=== PATIENT | female | born 1975 | race Caucasian/White ===

== ENCOUNTER 2017-04-25 15:50 | Emergency (ER) | payer MEDICAID ==
[~2017-04-25] VITALS: Ht 154.9 cm; Wt 90.7 kg
[~2017-04-25 15:50] MED LIST: PEPCID40 MG PO; SYNTHROID0.15 M1 NG
--- OUTSIDE RECORDS SUMMARY | 2017-04-25 16:16 | External Medical Summary Rpt ---
Author Author , LORENZO VENTURA Address Unknown Phone [email or web address] Care Team Providers Care Property Management Specialist Name Role Phone [facility], Unavailable Unavailable [facility] NOE, NOE Unavailable Unavailable VIVAS, VIVAS Unavailable Unavailable DANDRE BEDOYA MD, Unavailable Unavailable SINDY HENDRIX MD Unavailable Unavailable GORE, GORE Unavailable Unavailable [facility] Un[facility] Unavailable INC, [facility] KANU BORIS, KANU BORIS Unavailable Unavailable CARMELLA, CARMELLA Unavailable Unavailable [facility] Unavailable Unavailable [facility], [facility] Unavailable Unavailable [facility], [facility] Unavailable Unavailable HEALTH CTR, [facility] Unavailable Unavailable DEPARTMENT, [facility] Unavailable Unavailable [facility], [facility] Un[facility] Unavailable [facility], [facility] OLIVAREZ JR, JR Unavailable Unavailable [facility] Unavailable Unavailable [facility]OC[facility], [facility] Unavailable Unavailable SURGERY, [facility] Unavailable Unavailable MEDICAL, [facility] Unavailable Unavailable [facility] CENTER, [facility] Unavailable Unavailable [facility], [facility], Un[facility] Unavailable [facility], [facility] ELKE SAE ELKE Unavailable Unavailable SAE TOLBERT, SRIDHAR, Unavailable Unavailable TOLBERT, SRIDHAR [facility], Unavailable Unavailable [facility] RENUSCH, RENUSCH Unavailable Unavailable SPADY, SPADY Unavailable Unavailable VARGAS KER, VARGAS KER Unavailable Unavailable [facility] Unavailable Unavailable PHARMACY, [facility] # Unavailable Unavailable [id number], [facility] # [id number] DUNN GWE, DUNN GWE Unavailable Unavailable DUNN, JAEL, DUNN, Unavailable Unavailable JAEL Purpose Continuity of Care Document - 11-16-2008 through 2016 Problems Code Diagnosis DOS Provider Status [id number] OTHER 02-11-2017 [facility] R319 HEMATURIA 02-11-2017 [facility] E039 HYPOTHYROID 12-02-2016 [facility] ISM [facility] E890 POSTPROCEDU 12-02-[address] [facility] HYPOTHYROID HOLDINGS ISM J069 ACUTE UPPER 12-02-2016 [facility] INFECTION UNSPECIFIED K8010 CALCULUS GB 11-04-2016 [facility] W/CHRONIC [place] [facility] CHOLECYST W/O OBSTRUCTION K8020 CALCULUS GB 11-04-2016 [facility] W/O GENERAL CHOLECYSTIT SURGERY IS W/O OBSTRUCTION K811 CHRONIC 11-04-2016 [facility] CHOLECYSTIT GENERAL IS SURGERY K828 OTHER 11-04-2016 [facility] DISEASES OF ASSOCIAT GALLBLADDER E6601 MORBID 10-29-2016 [facility] SEVERE GENERAL OBESITY DUE SURGERY TO EXCESS CALORIES Z6841 BODY MASS 10-29-2016 [facility] BMI GENERAL 40.0-44.9 SURGERY ADULT J0190 ACUTE 10-15-2016 [facility] SINUSITIS [facility]PEC[facility] CTR R1011 RIGHT UPPER 10-03-2016 [facility] R110 NAUSEA 10-03-2016 [facility] R140 ABDOMINAL 10-03-2016 [facility] GASEOUS ASSOCIAT N63 UNSPECIFIED 09-17-[address] [facility] [address] [facility] BREAST MEDICAL Z1231 ENCOUNTER 09-05-2016 [facility] SCREENING [facility] NEOPLASM BREAST K30 FUNCTIONAL 08-24-2016 [facility] R1013 EPIGASTRIC 08-24-2016 [facility] PAIN [facility], [facility] 5990 URINARY 03-23-2011 [facility] SITE NOT SPECIFIED 25772 UNSPEC 03-08-2011 DANDRE BEDOYA MD AB WITHOUT MENTION COMP 22426 THREATENED 03-06-2011 [facility] , [facility]IMARY ANTEPARTUM CARE CENTER V221 SUPERVISION 03-06-2011 [facility] OF OTHER PRIMARY NORMAL CARE CENTER 7881 DYSURIA 03-05-2011 [facility] 460 ACUTE 03-04-2011 [facility] NASOPHARYNG PRIMARY ITIS CARE CENTER 2449 UNSPECIFIED 02-19-2011 [facility] HYPOTHYROID [facility]ARE C[facility] ISM 99248 OBES COMP 02-19-2011 [facility] PG PRIMARY /THE CARE CENTER PP ANTEPARTUM COND/COMP 79065 PREVIOUS 02-19-2011 [facility] C-SECT PRIMARY DELIVERY CARE CENTER ANTPRTM COND/COMP V232 02-13-2011 [facility] WITH PRIMARY HISTORY OF CARE CENTER V776 SCREENING 02-13-2011 [facility] FOR CYSTIC PRIMARY FIBROSIS CARE CENTER V825 SCREENING 02-06-2011 [facility] CHEMICAL HEALTH POISONING&O DEPARTMENT THER CONTAMINATI ON V7242 02-05-2011 [facility] EXAMINATION PRIMARY OR TEST CARE CENTER POSITIVE RESULT 6260 ABSENCE OF 01-26-2009 [facility] MENSTRUATIO PRIMARY N CARE CENTERINC 23831 ESOPHAGEAL 11-28-2008 [place] 632 MISSED 11-28-2008 [place] [facility] 12603 UNSPECIFIED 11-16-2008 [facility] ABNORMALITY MEDICAL OF LABOR CENTER ANTEPARTUM 7245 UNSPECIFIED 11-16-2008 [place] BACKACHE [facility] Medications Na ND Rx Da Fi Fi Am Da Di Ph RX Ph St me C No te ll ll ou ys ag ar # ys at rm s nt no ma ic us Or Da si cy ia de te s n re d LE 00 06 04 13 30 00 WA Ac VO 78 -2 -2 .0 00 L- ti TH 15 0- 1- 00 07 MA ve YR 18 20 20 89 RT OX 79 17 17 04 IN 2 98 PH E AR 15 MA 0 CY MC G #1 TA 56 BL 9 ET ES 54 06 04 13 30 00 VA Ac CI 45 -2 -2 .0 00 L- ti TA 80 0- 1- 00 07 MA ve LO 89 20 20 89 RT OK 21 17 17 04 AM 0 99 PH AR 10 MA CY MG #1 TA 56 BL 9 ET LI 00 02 19 30 30 00 WA Ac OT 57 -2 -2 .0 00 L- ti HY 40 0- 1- 00 07 MA ve RO 22 20 20 89 RT NI 00 17 17 05 NE 1 11 PH AR SO MA D CY 5 MC #1 G 56 TA 9 B PA 68 06 04 13 30 00 WA Ac NT 64 -2 -2 .0 00 L- ti OP 50 0- 1- 00 07 MA ve RA 49 20 20 89 RT ZO 25 17 17 05 LE 4 12 PH AR SO MA D CY DR #1 40 56 9 MG TA B FA 68 05 06 30 00 WA Ac MO 64 -3 -3 .0 00 L- ti TI 50 0- 0- 00 07 MA ve DI 14 20 20 86 RT NE 15 17 17 13 4 89 PH 40 AR MA MG CY TA #1 BL 56 ET 9 NA 68 05 06 60 30 00 DE Ac OK 46 -3 -3 .0 00 AN ti OX 20 0- 0- 00 06 S ve EN 19 20 20 51 PH 00 17 17 54 AR 50 1 79 MA 0 CY MG TA BL ET NI 47 05 06 14 7 00 DE Ac TR 78 -3 -3 .0 00 AN ti OF 10 0- 0- 00 06 S ve UR 30 20 20 51 PH AN 30 17 17 54 AR TO 1 80 MA IN CY MO NO -M CR 10 0 MG AZ 59 03 04 6. 5 00 WA Ac IT 76 -2 -2 00 00 L- ti HR 23 0- 1- 0 07 MA ve OM 06 20 20 87 RT YC 00 17 17 43 IN 1 79 PH AR 25 MA 0 CY MG #1 TA 56 BL 9 ET LE 00 03 04 30 30 00 WA Ac VO 78 -2 -2 .0 00 L- ti TH 15 1- 1- 00 07 MA ve YR 18 20 20 87 RT OX 79 17 17 46 IN 2 67 PH E AR 15 MA 0 CY MC G #1 TA 56 BL 9 ET FL 55 03 04 5. 5 00 WA Ac UC 11 -1 -2 00 00 L- ti ON 10 7- 1- 0 07 MA ve AZ 14 20 20 87 RT OL 51 17 17 38 E 2 47 PH 15 AR 0 MA MG CY TA #1 BL 56 ET 9 LE 00 03 04 30 30 00 WA Ac VO 78 -1 -1 .0 00 L- ti TH 15 4- 4- 00 07 MA ve YR 19 20 20 84 RT OX 19 17 17 85 IN 2 55 PH E AR 13 MA 7 CY MC G #1 TA 56 BL 9 ET FA 68 02 03 30 30 00 WA Ac MO 64 -1 -2 .0 00 L- ti TI 50 7- 4- 00 07 MA ve DI 14 20 20 86 RT NE 15 17 17 13 4 89 PH 40 AR MA MG CY TA #1 BL 56 ET 9 HY 00 02 03 [address] 40 -2 -2 .0 00 L- ti OC 60 0- 4- 00 02 MA ve OD 12 20 20 25 RT ON 30 17 17 32 -A 1 42 PH CE AR TA MA HI CY NO PH #1 EN 56 9 5- 32 5 AM 00 01 03 20 10 00 WA Ac OX 78 -3 -0 .0 00 L- ti -C 11 1- 3- 00 07 MA ve LA 85 20 20 86 RT V 22 17 17 52 87 0 78 PH 5- AR 12 MA 5 CY MG #1 TA 56 BL 9 ET ME 59 01 03 21 6 00 WA Ac TH 74 -3 -0 .0 00 L- ti YL 60 1- 3- 00 07 MA ve OK 00 20 20 86 RT ED 10 17 17 52 NI 3 77 PH SO AR LO MA NE CY 4 #1 MG 56 9 DO SE PK FA 68 01 02 30 30 00 WA Ac MO 64 -0 -1 .0 00 L- ti TI 50 9- 7- 00 07 MA ve DI 14 20 20 86 RT NE 15 17 17 13 4 89 PH 40 AR MA MG CY TA #1 BL 56 ET 9 LE 00 06 09 2 30 30 TO 61 WE Ac VO 52 -2 -3 .0 LL 14 BB ti TH 71 7- 0- 00 ES 93 ve YR 63 20 20 SELENE 0 GW OX 80 11 11 RO EN IN 1 E CL 13 IN 7 IC MC G PH TA AR BL MA ET CY BU 00 08 08 0 30 30 TO 61 HI Ac OK 59 -2 -2 .0 LL 17 ME ti OP 13 4- 4- 00 ES 19 S ve IO 54 20 20 SELENE 0 ER N 16 11 11 RO IN HC 0 L CL SR IN IC 15 0 PH MG AR MA TA CY BL ET LE 00 06 08 2 30 30 TO 61 WE Ac VO 52 -2 -2 .0 LL 14 BB ti TH 71 7- 2- 00 ES 93 ve YR 63 20 20 SELENE 0 GW OX 80 11 11 RO EN IN 1 E CL 13 IN 7 IC MC G PH TA AR BL MA ET CY 65 07 07 0 10 3 WA 75 PO Ac 16 -0 -1 .0 L- 38 CZ ti 20 9- 1- 00 MA 77 AT ve 52 20 20 RT 3 EK 01 11 11 0 PH PA AR TT MA I CY S # 10 15 69 GAUTHIER 53 07 07 0 20 10 WA 75 PO Ac LF 74 -0 -1 .0 L- 38 CZ ti AM 60 9- 1- 00 MA 77 AT ve ET 27 20 20 RT 4 EK HO 20 11 11 XA 5 PH PA ZO AR TT LE MA I -T CY S MP # DS 10 15 TA 69 BL ET IB 55 06 06 1 60 20 TO 61 PE Ac UP 11 -2 -2 .0 LL 14 TT ti RO 10 7- 7- 00 ES 96 IT ve FE 68 20 20 SELENE 2 N 40 11 11 RO GE 80 5 OR 0 CL GE MG IN P IC TA BL PH ET AR MA CY DO 57 06 06 0 30 15 TO 61 PE Ac CU 89 -2 -2 .0 LL 14 TT ti SA 60 4- 7- 00 ES 96 IT ve TE 40 20 20 SELENE 3 11 11 11 RO GE SO 0 OR DI CL GE UM IN P IC 10 0 PH MG AR MA CA CY PS UL E LE 00 06 06 2 30 30 TO 61 WE Ac VO 52 -2 -2 .0 LL 14 BB ti TH 71 7- 7- 00 ES 93 ve YR 63 20 20 SELENE 0 GW OX 80 11 11 RO EN IN 1 E CL 13 IN 7 IC MC G PH TA AR BL MA ET CY OK 65 05 06 3 30 30 TO 61 WE Ac EN 16 -2 -2 .0 LL 13 BB ti AT 20 4- 4- 00 ES 72 ve AL 66 20 20 SELENE 3 GW [address] 0 US CL IN TA IC BL ET PH AR MA CY PA 24 06 06 2 10 13 TO 61 HI Ac IN 38 -2 -2 0. LL 14 ME ti 50 0- 0- 00 ES 69 S ve RE 48 20 20 0 SELENE 6 ER LI 44 11 11 RO IN EF 7 CL 50 IN 0 IC MG PH CA AR PL MA ET CY FE 00 06 06 4 90 30 TO 61 WE Ac RR 67 -0 -0 .0 LL 14 BB ti OU 70 7- 7- 00 ES 22 ve S 07 20 20 SELENE 6 GW GAUTHIER 00 11 11 RO EN LF 1 AT CL E IN 32 IC 5 MG PH AR TA MA BL CY ET 00 06 06 2 30 30 TO 61 WE Ac 78 -0 -0 .0 LL 14 BB ti 15 7- 7- 00 ES 22 ve 18 20 20 SELENE 7 GW 80 11 11 RO EN 1 CL IN IC PH AR MA CY OK 65 05 05 3 30 30 TO 61 WE Ac EN 16 -2 -2 .0 LL 13 BB ti AT 20 4- 4- 00 ES 72 ve AL 66 20 20 SELENE 3 GW [address] 0 US CL IN TA IC BL ET PH AR MA CY 63 05 05 00 20 10 TO 60 PO Ac 82 -0 -2 .0 LL 83 CZ ti 40 7- 1- 00 ES 23 AT ve 00 20 20 SELENE 1 EK 81 09 09 RO 0 PA CL TT IN I IC S PH AR MA CY AM 00 05 05 00 30 10 TO 60 PO Ac OX 78 -0 -2 .0 LL 83 CZ ti IC 12 7- 1- 00 ES 23 AT ve IL 61 20 20 SELENE 0 EK LI 30 09 09 RO N 5 PA 50 CL TT 0 IN I MG IC S CA PH PS AR UL MA E CY LE 00 05 05 00 30 30 TO 60 PO Ac VO 37 -0 -2 .0 LL 83 RT ti TH 81 7- 1- 00 ES 23 ER ve YR 81 20 20 SELENE 2 OX 90 09 09 RO SA IN 1 RA E CL H 20 IN G 0 IC MC G PH TA AR BL MA ET CY 00 04 04 00 14 30 TO 60 PO Ac 59 -1 -2 .6 LL 82 RT ti 70 4- 3- 99 ES 32 ER ve 01 20 20 SELENE 8 31 09 09 RO SA 4 RA CL H IN G IC PH AR MA CY SE 59 04 04 00 15 30 TO 60 PO Ac RT 76 -0 -2 .0 LL 82 RT ti RA 24 9- 3- 00 ES 12 ER ve LI 91 20 20 SELENE 8 NE 00 09 09 RO SA 4 RA HC CL H L IN G 10 IC 0 MG PH AR TA MA BL CY ET Procedures Procedure DOS Code Location Performer Comment CULTURE 24997 LAB MAR LAB [facility] BACTERIAL 7 [facility] [place] [address] LAB MAR LAB MAR TRIIODOTH 7 [facility] YRONINE [place] [address] LAB MAR LAB MAR FREE 7 [facility] [place] [address] LAB MAR LAB MAR THYROID 7 [facility] STIMULATI HOLDINGS HOLDINGS [place] III [address] [facility] NOE SURG 7 [place] INC PATHOLOGY GROSS&TIN ROSCOPIC EXAM RAD EXP G9500 KATINA VIVAS INDICES/E 7 XP TM & RADIOLOGY NUMB ASSOCIAT FLUORO IMAGES DOC CHOLANGIO 25458 KATINA VIVAS GRAPHY&/P 7 ANCREATOG RADIOLOGY GRADY ASSOCIAT NTRAOP RS&I LAPS SURG 06107 [facility] 7 W GENERAL W GENERAL CHOLECYST SURGERY SURGERY ECTOMY W/CHOLANG IOGRAPHY ANES 36926 [facility] INTRAPERI 7 LTH TONEAL ANESTHESI UPPER A PSC ABDOMEN W/LAPS NOS HEPATOBIL 01881 [facility] SYST 7 W W IMAG INC REGIONAL REGIONAL GB MEDICAL MEDICAL W/PHARMA INTERVENJ TECHNETIU A9537 INNA KEITH M TC-99M 7 W W MEBROFENI REGIONAL REGIONAL N DX UP MEDICAL MEDICAL TO 15 MCI INJECTION J2805 RAPHAELWOMI [facility] 7 W W SINCALIDE REGIONAL REGIONAL 5 MEDICAL MEDICAL MICROGRAM S US BREAST 68490 [facility]WOMI LIMWOMI UNI REAL 7 W W TIME REGIONAL REGIONAL WITH MEDICAL MEDICAL IMAGE LIMITED COMPUTER- 04533 [facility] AIDED 6 DETECTION RADIOLOGY RADIOLOGY ASSOCIAT ASSOCIAT SCREENING MAMMOGRAP HY SCREENING G0202 [facility] 6 MAMMOGRAP RADIOLOGY HY BRAY[place] [address] [facility] ABDOMINAL 6 FAMILY REAL HEALTH TIME CTR W/[place] [address] LAB MAR LAB MAR TRIIODOTH 6 LAURA LAURA YRONINE HOLDINGS HOLDINGS T3 FREE GENERAL 05570 LAB MAR LAB MAR HEALTH 6 [facility] [place] [address] LAB MAR LAB MAR FREE 6 [facility]UR[facility] THYROXINE HOLDINGS HOLDINGS ECG 04528 [facility] OLGUIN ROUTINE 6 [facility] ECG INC INC W/LEAST 12 LDS TRCG ONLY W/O I&[place] [address] [facility] OLGUIN LIPASE 6 [place] [address] [facility] OLGUIN TROPONIN 6 [facility] QUANTITAT INC INC SAMIR URNLS DIP 09784 [facility] LOGUIN 6 [facility] STICK/TAB INC INC LET REAGENT AUTO MICROSCOP Y ECG 34160 SHARIF OLIVAREZ JR ROUTINE 6 [facility] W/LEAST P 12 LDS I&R ONLY BLOOD 53575 [facility] OLGUIN COUNT 6 [facility] COMPLETE INC INC AUTO&AUTO DIFRNTL WBC COMPREHEN 13513 [facility] OLGUIN SIVE 6 [facility] METABOLIC INC INC PANEL URNLS DIP 60978 [facility] 1 PRIMARY PAT STICK/TAB CARE LET RGNT CENTER AUTO W/O MICROSCOP Y [place] MISSED 34533 DANDRE BEDOYA 1 ELKE NUGENT SAE FIRST TRIMESTER SURGICAL URNLS DIP 63027 [facility] DUNN GWE 1 PRIMARY STICK/TAB CARE LET RGNT CENTER AUTO W/O MICROSCOP Y COLLECTIO 04467 [facility] DUNN GWE N VENOUS 1 PRIMARY BLOOD CARE VENIPUNCT CENTER URE BLOOD 64689 [facility] TYPING 1 W W SEROLOGIC REGIONAL REGIONAL ABO MEDICAL MEDICAL COLLECTIO 18087 [facility] N VENOUS 1 W W BLOOD REGIONAL REGIONAL VENIPUNCT MEDICAL MEDICAL URE GONADOTRO 37900 [facility] PIN 1 W W CHORIONIC REGIONAL REGIONAL MEDICAL MEDICAL QUANTITAT SAMIR URNLS DIP 05506 [facility] 1 W W STICK/TAB REGIONAL REGIONAL LET MEDICAL MEDICAL REAGENT AUTO MICROSCOP Y BLOOD 21078 [facility] TYPING 1 W W SEROLOGIC REGIONAL REGIONAL RH (D) MEDICAL MEDICAL COLLECTIO 78798 [facility] DUNN GWE N VENOUS 1 PRIMARY BLOOD CARE VENIPUNCT CENTER URE URNLS DIP 81914 [facility] DUNN GWE 1 PRIMARY STICK/TAB CARE LET RGNT CENTER AUTO W/O MICROSCOP Y COLLECTIO 13803 [facility] DUNN GWE N VENOUS 1 PRIMARY BLOOD CARE VENIPUNCT CENTER URE URNLS DIP 30539 [facility] DUNN GWE 1 PRIMARY STICK/TAB CARE LET RGNT CENTER AUTO W/[place] [address] [facility] LEAD 1 [facility] T T URINE 52875 [facility] DUNN GWE 1 PRIMARY TEST CARE VISUAL CENTER COLOR CMPRSN METHS URNLS DIP 79191 [facility] DUNN GWE 1 PRIMARY STICK/TAB CARE LET RGNT CENTER AUTO W/O MICROSCOP Y COLLECTIO 29132 [facility] DNUN GWE N VENOUS 1 PRIMARY BLOOD CARE VENIPUNCT CENTER URE COLLECTIO 59873 [facility], N VENOUS 9 PRIMARY SRIDHAR BLOOD CARE VENIPUNCT CENTERINC URE URINE 20559 [facility], 9 PRIMARY SRIDHAR TEST CARE VISUAL CENTERINC COLOR CMPRSN METHS URINE 68578 [facility] [address] W W TEST [facility] [facility] VISUAL MEDICAL MEDICAL COLOR CENTER CENTER CMPRSN METHS BLOOD 01480 [facility] TYPING 9 W W SEROLOGIC [facility] RH (D) MEDICAL MEDICAL CENTER CENTER URNLS DIP 36750 [facility] 9 W W STICK/TAB [facility] LET MEDICAL MEDICAL REAGENT CENTER CENTER AUTO MICROSCOP Y BLOOD 32285 [facility] COUNT 9 W W COMPLETE [facility] AUTO&AUTO MEDICAL MEDICAL DIFRNTL CENTER CENTER WBC COLLECTIO 35552 [facility] N VENOUS 9 W W BLOOD [facility] VENIPUNCT [facility] MEDICAL URE CENTER CENTER THERAPEUT 94902 [facility] IC 9 W W PROPHYLAC [facility] TIC/DX MEDICAL MEDICAL INJECTION CENTER CENTER SUBQ/IM BLOOD 37956 [facility] TYPING 9 W W SEROLOGIC [facility] ABO [facility] [place] [address] [facility] D[facility], THYROID 9 PRIMARY JAEL STIMULATI CARE NG CENTERINC HORMONE TSH URNLS DIP 41007 [facility] DUNN, 9 PRIMARY JAEL STICK/TAB CARE LET RGNT CENTERINC AUTO W/O MICROSCOP Y URINE 83878 [facility] DUNN, 9 PRIMARY JAEL TEST CARE VISUAL CENTERINC COLOR CMPRSN METHS URINE 78090 [facility] 9 W W TEST [facility] VISUAL MEDICAL MEDICAL COLOR CENTER CENTER CMPRSN METHS CUL BACT 73608 [facility] XCPT 9 W W URINE [facility] BLOOD/STO MEDICAL MEDICAL OL CENTER CENTER AEROBIC ISOL SMR PRIM 94540 [facility] SRC WET 9 W W [facility] NF[facility] MEDICAL MEDICAL CENTER CENTER CHLAMYDIA 16940 [facility]OW[facility] 9 W W TRACHOMAT [facility] IS MEDICAL MEDICAL CENTER CENTER SMR PRIM 30044 [facility] SRC 9 W W GRAM/GIEM [facility] SA STAIN MEDICAL MEDICAL BCT CENTER CENTER FUNGI/WALTER L BLOOD 29149 [facility] COUNT 9 W W COMPLETE [facility] AUTO&AUTO MEDICAL MEDICAL DIFRNTL CENTER CENTER WBC URNLS DIP 82083 [facility] 9 W W STICK/TAB [facility] LET MEDICAL MEDICAL REAGENT CENTER CENTER AUTO MICROSCOP Y COLLECTIO 43521 ANNDOWOMI MEAW[facility] N VENOUS 9 W W BLOOD [facility] VENIPUNCT MEDICAL MEDICAL URE CENTER CENTER GONADOTRO 78395 RAPHAELWOMI MEAW[facility] PIN 9 W W [facility]IC [facility] MEDICAL QUANTITAT CENTER CENTER SAMIR Encounters Encounter Start End Date Code Location Performer Type Date OFFICE 01858 [facility] OUTPATIEN 7 7 FAMILY T VISIT HEALTH 25 CTR MINUTES OFFICE 27901 [facility] CARMELLA OUTPATIEN 7 7 FAMILY T VISIT HEALTH 15 CTR MINUTES OFFICE 88032 INNA BRADYFRANCK OUTPATIEN 7 7 W GENERAL T NEW 45 SURGERY MINUTES OFFICE 79767 [facility] OUTPATIEN 7 7 FAMILY T VISIT HEALTH 15 CTR MINUTES HOSPITAL [facility] - 7 [facility] 6 [facility] 57975 [facility] CARMELLA OUTPATIEN 6 6 FAMILY T VISIT HEALTH 15 CTR MINUTES EMERGENCY 15947 [facility] DEPT 6 6 PHYSICIAN VISIT S, PLLC HIGH SEVERITY& THREAT [facility] SHARIF - 6 6 [facility] OUTPATIEN INC T OFFICE 69350 [facility] OUTPATIEN 1 1 PRIMARY PAT T VISIT CARE 15 CENTER MINUTES OFFICE 85658 [facility] DUNN GWE OUTPATIEN 1 1 PRIMARY T VISIT CARE 15 CENTER MINUTES HOSPITAL RAPHAELWVIE - 1 1 W OUTPATIEN REGIONAL T MEDICAL EMERGENCY 10991 DAWSON VARGAS KER 1 1 EMERGENCY DEPARTMEN SERVICES T VISIT HIGH/URGE NT SEVERITY OFFICE 67220 [facility] KANU BORIS OUTPATIEN 1 1 PRIMARY T VISIT CARE 15 CENTER MINUTES OFFICE 44513 [facility] DUNN GWE OUTPATIEN 1 1 PRIMARY T VISIT CARE 15 CENTER MINUTES OFFICE 30536 [facility] DUNN GWE OUTPATIEN 1 1 PRIMARY T VISIT CARE 25 CENTER MINUTES OFFICE 54857 [facility] OUTPATIEN 1 1 [facility] 20 [facility] DEPARTMEN MINUTES T T OFFICE 65639 [facility] DUNN GWE OUTPATIEN 1 1 PRIMARY T VISIT CARE 15 CENTER MINUTES OFFICE 65904 [facility], OUTPATIEN 9 9 PRIMARY SRIDHAR T VISIT CARE 25 CENTERINC MINUTES EMERGENCY 37809 RAPHAELWVIE 9 9 W DEPARTMEN REGIONAL T VISIT MEDICAL HIGH/URGE CENTER NT [facility] HOSPITAL ME[facility] - 9 9 W OUTPATIEN REGIONAL T MEDICAL CENTER OFFICE 27534 [facility] DUNN, OUTPATIEN 9 9 PRIMARY JAEL T VISIT CARE 15 CENTERINC MINUTES EMERGENCY 99815 [facility] 9 9 W DEPARTMEN REGIONAL T VISIT MEDICAL MODERATE CENTER [facility] H[facility] MEAWVIE - 9 9 W OUTPATIEN REGIONAL T MEDICAL CENTER
--- OUTSIDE RECORDS SUMMARY | 2017-04-25 16:16 | External Medical Summary Rpt ---
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 Name Role Phone [facility] [place] [facility], Unavailable [...] HOLDINGS, [facility] Unavailable Unavailable HEALTH CTR, [facility] Unavailable Unavailable DEPARTMENT, [facility] Unavailable Unavailable [facility]MENT, [facility] Un[facility] Unavailable C[facility], [facility] OLIVAREZ JR, JR [facility]available Unavailable [facility] Unavailable Unavailable ASSOCI, [facility] Unavailable Unavailable SURGERY, [facility] Unavailable [facility]available MEDICAL, [facility] Unavailable [facility]available MEDICAL CENTER, [facility] Unavailable Unavailable [facility], [facility], Un[facility] Unavailable [facility], [facility] ELKE SAE ELKE Unavailable Unavailable SAE TOLBERT, SRIDHAR, Unavailable Unavailable TOLBERT, SRIDHAR [facility], Unavailable Unavailable [facility] RENUSCH, RENUSCH Unavailable Unavailable SPADY, SPADY Unavailable Unavailable VARGAS KER, VARGAS KER Unavailable Unavailable [facility] Unavailable Unavailable PHARMACY, [facility] # Unavailable Unavailable [id number], [facility] # [id number] DUNN GWE, DUNN GWE Unavailable Unavailable DUNN, JAEL, DUNN, Unavailable Unavailable JAEL Purpose Continuity of Care Document - 11-16-2008 through 2016 Problems Code Diagnosis DOS Provider Status [id number] OTHER 02-11-2017 [facility] R319 HEMATURIA 02-11-2017 [facility] E039 HYPOTHYROID 12-02-2016 [facility] ISM [facility] E890 POSTPROCEDU 12-02-2016 [facility] LAURA HYPOTHYROID HOLDINGS ISM J069 ACUTE UPPER 12-02-2016 [facility] INFECTION UNSPECIFIED K8010 CALCULUS GB 11-04-2016 [facility] W/CHRONIC [place] [facility] CHOLECYST W/O OBSTRUCTION K8020 CALCULUS GB 11-04-2016 [facility] W/O GENERAL CHOLECYSTIT SURGERY IS W/O OBSTRUCTION K811 CHRONIC 11-04-2016 [facility] CHOLECYSTIT GENERAL IS SURGERY K828 OTHER 11-04-2016 [facility] DISEASES OF ASSOCIAT GALLBLADDER E6601 MORBID 10-29-2016 [facility] SEVERE GENERAL OBESITY DUE SURGERY TO EXCESS CALORIES Z6841 BODY MASS 10-29-2016 [facility] INDEX BMI GENERAL 40.0-44.9 SURGERY ADULT J0190 ACUTE 10-15-2016 [facility] SINUSITIS [facility] UNSPECIFIED [facility] CTR R1011 RIGHT UPPER 10-03-2016 [facility] R110 NAUSEA 10-03-2016 [facility] R140 ABDOMINAL 10-03-2016 [facility] GASEOUS ASSOCIAT N63 UNSPECIFIED 09-17-[address] [facility] [address] [facility] MEDICAL Z1231 ENCOUNTER 09-05-2016 [facility] NEOPLASM BREAST K30 FUNCTIONAL 08-24-2016 [facility]PSIA [facility], [facility] R1013 EPIGASTRIC 08-24-2016 [facility] PAIN [facility]YS[facility], [facility] 5990 URINARY 03-23-2011 [facility]CT [facility] SITE NOT SPECIFIED 38407 UNSPEC 03-08-2011 DANDRE BEDOYA MD AB WITHOUT MENTION COMP 35627 THREATENED 03-06-2011 [facility] , [facility]IMARY ANTEPARTUM CARE CENTER V221 SUPERVISION 03-06-2011 [facility] OF OTHER PRIMARY NORMAL CARE CENTER 7881 DYSURIA 03-05-2011 [facility] 460 ACUTE 03-04-2011 [facility] NASOPHARYNG PRIMARY ITIS CARE CENTER 2449 UNSPECIFIED 02-19-2011 [facility] HYPOTHYROID CARE CENTER ISM 65337 OBES COMP 02-19-2011 [facility] PG PRIMARY /THE CARE CENTER PP ANTEPARTUM COND/COMP 34144 PREVIOUS 02-19-2011 [facility] TIRADO C-SECT PRIMARY DELIVERY [...] [facility] MENSTRUATIO PRIMARY N CARE CENTERINC 57372 ESOPHAGEAL 11-28-2008 [facility] REFLUX [facility] 632 MISSED 11-28-2008 [facility] 16605 UNSPECIFIED 11-16-2008 [facility] ABNORMALITY MEDICAL OF LABOR CENTER ANTEPARTUM 7245 UNSPECIFIED 11-16-2008 [facility] BACKACHE [facility] Medications Na ND Rx Da Fi Fi [...] ES 54 06 04 13 30 00 TN Ac CI 45 -2 -2 .0 00 L- ti TA 80 0- 1- 00 07 MA ve LO 89 20 20 89 RT ND 21 17 17 04 AM 0 99 [...] 05 06 60 30 00 DE Ac ND 46 -3 -3 .0 00 AN ti [...] 1 42 PH CE AR TA MA MA CY NO PH #1 EN 56 9 [...] 60 1- 3- 00 07 MA ve ND 00 20 20 86 RT ED 10 [...] 0 30 30 TO 61 HI Ac ND 59 -2 -2 .0 LL 17 ME [...] PH TA AR BL MA ET CY ND 65 05 06 3 30 30 TO [...] CL IN IC PH AR MA CY ND 65 05 05 3 30 30 TO [...] Procedure DOS Code Location Performer Comment CULTURE 04647 LAB MAR LAB MAR BACTERIAL 7 LAURA LAURA [facility]INGS [facility]INGS [place] [address] LAB MAR LAB MAR TRIIODOTH 7 LAURA LAURA YRONINE [place] [place] [address] LAB MAR LAB MAR FREE 7 LAUR[facility] [place] [address] LAB MAR LAB MAR THYROID 7 LAURA LAURA STIMULATI HOLDINGS [place] [address] [facility] NOE SURG 7 [place] PATHOLOGY GROSS&TIN ROSCOPIC EXAM RAD EXP G9500 KATINA VIVAS INDICES/E 7 XP TM & RADIOLOGY NUMB ASSOCIAT FLUORO IMAGES DOC CHOLANGIO 82810 KATINA VIVAS GRAPHY&/P 7 ANCREATOG RADIOLOGY GRADY ASSOCIAT NTRAOP RS&I LAPS SURG 89155 [facility] 7 W GENERAL W GENERAL CHOLECYST SURGERY SURGERY ECTOMY W/CHOLANG IOGRAPHY ANES 33460 [facility] INTRAPERI 7 LTH TONEAL ANESTHESI UPPER A PSC ABDOMEN W/LAPS NOS HEPATOBIL 15554 [facility] SYST 7 W W IMAG INC REGIONAL REGIONAL GB MEDICAL MEDICAL W/PHARMA INTERVENJ TECHNETIU A9537 INNA KEITH M TC-99M 7 W W MEBROFENI REGIONAL REGIONAL N DX UP MEDICAL MEDICAL TO 15 MCI INJECTION J2805 RAPHAELWOMI [facility] 7 W W SINCALIDE REGIONAL REGIONAL 5 MEDICAL MEDICAL MICROGRAM S US BREAST 81253 RAPHAELWOMI LIMWOMI UNI REAL 7 W W TIME REGIONAL REGIONAL WITH MEDICAL MEDICAL IMAGE LIMITED COMPUTER- [address] [facility] AIDED 6 DETECTION RADIOLOGY RADIOLOGY ASSOCIAT ASSOCIAT SCREENING MAMMOGRAP HY SCREENING G0202 [facility] 6 MAMMOGRAP RADIOLOGY HY BRAYDON [place] [address] [facility] CARMELLA ABDOMINAL 6 FAMILY REAL HEALTH TIME CTR W/[place] [address] LAB MAR LAB MAR TRIIODOTH 6 LAURA LAURA YRONINE HOLDINGS HOLDINGS T3 FREE GENERAL 38150 LAB MAR LAB MAR HEALTH 6 LAURA [place] [address] LAB MAR LAB MAR FREE 6 LAURA LAURA THYROXINE HOLDINGS HOLDINGS ECG 34352 SHARIF OLGUIN ROUTINE 6 [facility] ECG INC INC W/LEAST 12 LDS TRCG ONLY W/O I&[place] [address] SHARIF OLGUIN LIPASE 6 [place] [address] SHARIF OLGUIN TROPONIN 6 [facility] QUANTITAT INC INC SAMIR URNLS DIP 68294 SHARIF OLGUIN 6 [facility] STICK/TAB INC INC LET REAGENT AUTO MICROSCOP Y ECG 79468 SHARIF OLIVAREZ JR ROUTINE 6 [facility] W/LEAST P 12 LDS I&R ONLY BLOOD 89293 SHARIF OLGUIN COUNT 6 [facility] COMPLETE INC INC AUTO&AUTO DIFRNTL WBC COMPREHEN 88531 SHARIF OLGUIN SIVE 6 [facility] METABOLIC INC INC PANEL URNLS DIP 06670 [facility] 1 PRIMARY PAT STICK/TAB CARE LET RGNT CENTER AUTO W/O MICROSCOP Y [place] MISSED 58933 DANDRE BEDOYA 1 ELKE NUGENT SAE FIRST TRIMESTER SURGICAL URNLS DIP 52793 [facility] DUNN GWE 1 PRIMARY STICK/TAB CARE LET RGNT CENTER AUTO W/O MICROSCOP Y COLLECTIO 97927 [facility] DUNN GWE N VENOUS 1 PRIMARY BLOOD CARE VENIPUNCT CENTER URE BLOOD 22828 [facility] TYPING 1 W W SEROLOGIC REGIONAL REGIONAL ABO MEDICAL MEDICAL COLLECTIO 87385 [facility] N VENOUS 1 W W BLOOD REGIONAL REGIONAL VENIPUNCT MEDICAL MEDICAL URE GONADOTRO 83782 [facility] PIN 1 W W CHORIONIC REGIONAL REGIONAL MEDICAL MEDICAL QUANTITAT SAMIR URNLS DIP 41938 [facility] 1 W W STICK/TAB REGIONAL REGIONAL LET MEDICAL MEDICAL REAGENT AUTO MICROSCOP Y BLOOD 34781 [facility] TYPING 1 W W SEROLOGIC REGIONAL REGIONAL RH (D) MEDICAL MEDICAL COLLECTIO 31540 [facility] DUNN GWE N VENOUS 1 PRIMARY BLOOD CARE VENIPUNCT CENTER URE URNLS DIP 61025 [facility] DUNN GWE 1 PRIMARY STICK/TAB CARE LET RGNT CENTER AUTO W/O MICROSCOP Y COLLECTIO 42179 [facility] DUNN GWE N VENOUS 1 PRIMARY BLOOD CARE VENIPUNCT CENTER URE URNLS DIP 57695 [facility] DUNN GWE 1 PRIMARY STICK/TAB CARE LET RGNT CENTER AUTO W/[place] [address] [facility] TIRADO LEAD 1 [facility] T T URINE 94809 [facility] TIRADO DUNN GWE 1 PRIMARY TEST CARE VISUAL CENTER COLOR CMPRSN METHS URNLS DIP 63443 [facility] TIRADO DUNN GWE 1 PRIMARY STICK/TAB CARE LET RGNT CENTER AUTO W/O MICROSCOP Y COLLECTIO 44915 [facility] DUNN GWE N VENOUS 1 PRIMARY BLOOD CARE VENIPUNCT CENTER URE COLLECTIO 53071 [facility] TOLBERT, N VENOUS 9 PRIMARY SRIDHAR BLOOD CARE VENIPUNCT CENTERINC URE URINE 80646 [facility] TOLBERT, 9 PRIMARY SRIDHAR TEST CARE VISUAL CENTERINC COLOR CMPRSN METHS URINE 89563 [facility] 9 W W TEST [facility] VISUAL MEDICAL MEDICAL COLOR CENTER CENTER CMPRSN METHS BLOOD 91441 [facility] TYPING 9 W W SEROLOGIC [facility] RH (D) MEDICAL MEDICAL CENTER CENTER URNLS DIP 78041 [facility] 9 W W STICK/TAB [facility] LET MEDICAL MEDICAL REAGENT CENTER CENTER AUTO MICROSCOP Y BLOOD 34489 [facility] COUNT 9 W W COMPLETE [facility] AUTO&AUTO MEDICAL MEDICAL DIFRNTL CENTER CENTER WBC COLLECTIO 05127 [facility] N VENOUS 9 W W BLOOD [facility] VENIPUNCT [facility] MEDICAL URE CENTER CENTER THERAPEUT 66822 [facility] IC 9 W W PROPHYLAC [facility] TIC/DX MEDICAL MEDICAL INJECTION CENTER CENTER SUBQ/IM BLOOD 53162 [facility] TYPING 9 W W SEROLOGIC [facility] ABO [facility] [place] [address] [facility] DUNN, THYROID 9 PRIMARY JAEL STIMULATI CARE NG CENTERINC HORMONE TSH URNLS DIP 94166 [facility] DUNN, 9 PRIMARY JAEL STICK/TAB CARE LET RGNT CENTERINC AUTO W/O MICROSCOP Y URINE 95800 [facility] DUNN, 9 PRIMARY JAEL TEST CARE VISUAL CENTERINC COLOR CMPRSN METHS URINE 14351 [facility] 9 W W TEST [facility] VISUAL MEDICAL MEDICAL COLOR CENTER CENTER CMPRSN METHS CUL BACT 05458 [facility] XCPT 9 W W URINE [facility] BLOOD/STO MEDICAL MEDICAL OL CENTER CENTER AEROBIC ISOL SMR PRIM 62466 [facility] SRC WET 9 W W [facility] NFCT [facility] CENTER CHLAMYDIA 48015 [facility] 9 W W TRACHOMAT [facility] IS MEDICAL MEDICAL CENTER CENTER SMR PRIM 71424 [facility] SRC 9 W W GRAM/GIEM [facility] SA STAIN MEDICAL MEDICAL BCT CENTER CENTER FUNGI/WALTER L BLOOD 84406 [facility] COUNT 9 W W COMPLETE [facility] AUTO&AUTO MEDICAL MEDICAL DIFRNTL CENTER CENTER WBC URNLS DIP 26657 [facility] 9 W W STICK/TAB [facility] LET MEDICAL MEDICAL REAGENT CENTER CENTER AUTO MICROSCOP Y COLLECTIO 32613 ANNDOWOMI [facility] N VENOUS 9 W W BLOOD [facility] VENIPUNCT MEDICAL MEDICAL URE CENTER CENTER GONADOTRO 95535 RAPHAELWOMI MEAWVIE PIN 9 W W [facility]IC [facility] MEDICAL QUANTITAT CENTER CENTER SAMIR Encounters Encounter Start End Date Code Location Performer Type Date OFFICE 16098 [facility] GORE OUTPATIEN 7 7 FAMILY T VISIT HEALTH 25 CTR MINUTES OFFICE 92351 [facility] CARMELLA OUTPATIEN 7 7 FAMILY T VISIT HEALTH 15 CTR MINUTES OFFICE 10515 INNA BRADYFRANCK OUTPATIEN 7 7 W GENERAL T NEW 45 SURGERY MINUTES OFFICE 27687 [facility] OUTPATIEN 7 7 FAMILY T VISIT HEALTH 15 CTR MINUTES [facility] 53493 [facility] CARMELL[facility] OUTPATIEN 6 6 FAMILY T VISIT HEALTH 15 CTR MINUTES EMERGENCY 44113 [facility] RUST DEPT 6 6 PHYSICIAN VISIT S, PLLC HIGH SEVERITY& THREAT [facility] SHARIF - 6 6 [facility] OUTPATIEN INC T OFFICE 72589 [facility] OUTPATIEN 1 1 PRIMARY PAT T VISIT CARE 15 CENTER MINUTES OFFICE 02696 [facility] DUNN GWE OUTPATIEN 1 1 PRIMARY T VISIT CARE 15 CENTER MINUTES HOSPITAL RAPHAELWVIE - 1 1 W OUTPATIEN REGIONAL T MEDICAL EMERGENCY 40404 DAWSON VARGAS KER 1 1 EMERGENCY DEPARTMEN SERVICES T VISIT HIGH/URGE NT SEVERITY OFFICE 59905 [facility] KANU BORIS OUTPATIEN 1 1 PRIMARY T VISIT CARE 15 CENTER MINUTES OFFICE 72234 [facility] DUNN GWE OUTPATIEN 1 1 PRIMARY T VISIT CARE 15 CENTER MINUTES OFFICE 89068 [facility] DUNN GWE OUTPATIEN 1 1 PRIMARY T VISIT CARE 25 CENTER MINUTES OFFICE 19068 [facility] OUTPATIEN 1 1 [facility] 20 DEPARTREGENCY MERIDIAN DEPARTMEN MINUTES T T OFFICE 97043 [facility] DUNN GWE OUTPATIEN 1 1 PRIMARY T VISIT CARE 15 CENTER MINUTES OFFICE 75180 [facility] TOLBERT, OUTPATIEN 9 9 PRIMARY SRIDHAR T VISIT CARE 25 CENTERINC MINUTES EMERGENCY 13253 RAPHAELWVIE 9 9 W DEPARTMEN REGIONAL T VISIT MEDICAL HIGH/URGE CENTER NT [facility] - 9 9 W OUTPATIEN REGIONAL T MEDICAL CENTER OFFICE 61219 [facility] DUNN, OUTPATIEN 9 9 PRIMARY JAEL T VISIT CARE 15 CENTERINC MINUTES EMERGENCY 31015 [facility] 9 9 W DEPARTMEN REGIONAL T VISIT MEDICAL MODERATE CENTER [facility] MEAW[facility] - 9 9 W OUTPATIEN REGIONAL T MEDICAL CENTER
--- OUTSIDE RECORDS SUMMARY | 2017-04-25 16:18 | External Medical Summary Rpt ---
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 Name Role Phone [facility], Unavailable Unavailable [facility] NOE, NOE Unavailable Unavailable ORTEGA VIVAS Unavailable Unavailable DANDRE BEDOYA MD, Unavailable Unavailable SINDY HENDRIX MD Unavailable Unavailable GORLing, GORE Unavailable Unavailable HAGENSCHNEIDER, Unavailable Unavailable [facility]AGENSCHNEIDER [facility] Unavailable Unavailable INC, [facility]U Unavailable Unavailable KANU BORIS, KANU BORIS Unavailable Unavailable CARMELLA, CARMELLA Unavailable Unavailable [facility] Unavailable Unavailable [facility], [facility] Unavailable Unavailable [facility], [facility] Unavailable Un[facility], [facility] Unavailable Unavailable [facility] Unavailable Unavailable [facility], [facility] Unavailable C[facility], [facility] Unavailable Unavailable [facility] Unavailable Unavailable ASSOC[facility], [facility] Unavailable Unavailable SURGERY, [facility] Unavailable [facility]available MEDICAL, [facility] Unavailable [facility]available MEDICAL CENTER, [facility] Unavailable Unavailable MEDICAL, [facility], Unavailable Unavailable PLL, [facility] ELKE SAE, ELKE Unavailable Unavailable SAE TOLBERT, SRIDHAR, Unavailable Unavailable TOLBERT, SRIDHAR [facility], Unavailable Unavailable [facility] RENUSCH, RENUSCH Unavailable Unavailable SPADY, SPADY Unavailable Unavailable [facility] Unavailable Unavailable PHARMACY, [facility] # Unavailable Unavailable [id number], [facility] # [id number] DUNN GWE, DUNN GWE Unavailable Unavailable DUNN, JAEL, DUNN, Unavailable Unavailable JAEL Purpose Continuity of Care Document - 11-16-2008 through 2016 Problems Code Diagnosis DOS Provider Status [id number] OTHER 02-11-2017 [facility] R319 HEMATURIA 02-11-2017 [facility] E039 HYPOTHYROID 12-02-2016 [facility]M [facility] E890 POSTPROCEDU 12-02-2016 [facility] HYPOTHYROID HOLDINGS ISM J069 ACUTE UPPER 12-02-2016 [facility] INFECTION UNSPECIFIED K8010 CALCULUS GB 11-04-2016 [facility] W/CHRONIC [place] [facility] CHOLECYST W/O OBSTRUCTION K8020 CALCULUS GB 11-04-2016 [facility] W/O GENERAL CHOLECYSTIT SURGERY IS W/O OBSTRUCTION K811 CHRONIC 11-04-2016 [facility] CHOLECYSTIT GENERAL IS SURGERY K828 OTHER 11-04-2016 [facility] DISEASES OF ASSOCIAT GALLBLADDER E6601 MORBID 10-29-2016 [facility] SEVERE GENERAL OBESITY DUE SURGERY TO EXCESS CALORIES Z6841 BODY MASS 10-29-2016 [facility] INDEX BMI GENERAL 40.0-44.9 SURGERY ADULT J0190 ACUTE 10-15-2016 [facility]INUS[facility]IS [facility] CTR R1011 RIGHT UPPER 10-03-2016 [facility] MEDICAL R110 NAUSEA 10-03-2016 [facility] R140 ABDOMINAL 10-03-2016 [facility]ION [facility] GASEOUS ASSOCIAT N63 UNSPECIFIED 09-17-2016 [facility] IN [facility] BREAST MEDICAL Z1231 ENCOUNTER 09-05-2016 [facility] SCREENING [facility] NEOPLASM BREAST K30 FUNCTIONAL 08-24-2016 [facility] R1013 EPIGASTRIC 08-24-2016 [facility] PAIN [facility]YS[facility], [facility] 5990 URINARY 03-23-2011 [facility] SITE NOT SPECIFIED 37276 UNSPEC 03-08-2011 DANDRE BEDOYA MD AB WITHOUT MENTION COMP 19002 THREATENED 03-06-2011 [facility] , [facility] ANTEPARTUM [facility]ARE CENTER V221 SUPERVISION 03-06-2011 [facility] OF OTHER PRIMARY NORMAL CARE CENTER 7881 DYSURIA 03-05-2011 [facility] MEDICAL 460 ACUTE 03-04-2011 [facility] NASOPHARYNG [facility] ITIS [facility]ARE CENTER 2449 UNSPECIFIED 02-19-2011 [facility] HYPOTHYROID [facility] ISM 69746 OBES COMP 02-19-2011 [facility] PG PRIMARY /THE CARE CENTER PP ANTEPARTUM COND/COMP 26462 PREVIOUS 02-19-2011 [facility] TIRADO C-SECT PRIMARY DELIVERY [...] [facility] MENSTRUATIO [facility] N CARE CENTERINC 80841 ESOPHAGEAL 11-28-2008 [facility] REFLUX [facility] 632 MISSED 11-28-2008 [facility] 38348 UNSPECIFIED 11-16-2008 [facility] ABNORMALITY MEDICAL OF LABOR CENTER ANTEPARTUM 7245 UNSPECIFIED 11-16-2008 [facility] BACKACHE [facility] Medications Na ND Rx Da Fi Fi Am Da Di Ph RX Ph St me C No te ll ll ou ys ag ar # ys at rm s nt no ma ic us Or Da si cy ia de te s n re d LI 00 06 07 30 00 NV Ac OT 57 -2 -2 .0 00 L- ti HY 40 0- 1- 00 07 MA ve RO 22 20 20 89 RT NI 00 17 17 05 NE 1 11 PH AR SO MA D CY 5 MC #1 G 56 TA 9 B PA 68 06 07 30 00 NV Ac NT 64 -2 -2 .0 00 L- ti OP 50 0- 1- 00 07 MA ve RA 49 20 20 89 RT ZO 25 17 17 05 LE 4 12 PH AR SO MA D CY DR #1 40 56 9 MG TA B LE 00 06 07 30 30 00 NV Ac VO 78 -2 -2 .0 00 L- ti TH 15 0- 1- 00 07 MA ve YR 18 20 20 89 RT OX 79 17 17 04 IN 2 98 PH E AR 15 MA 0 CY MC G #1 TA 56 BL 9 ET ES 54 06 07 30 30 00 NV Ac CI 45 -2 -2 .0 00 L- ti TA 80 0- 1- 00 07 MA ve LO 89 20 20 89 RT VT 21 17 17 04 AM 0 99 PH AR 10 MA CY MG #1 TA 56 BL 9 ET FA 68 05 06 30 30 00 WA Ac MO 64 -3 -3 .0 00 L- ti TI 50 0- 0- 00 07 MA ve DI 14 20 20 86 RT NE 15 17 17 13 4 89 PH 40 AR MA MG CY TA #1 BL 56 ET 9 NA 68 05 06 60 30 00 DE Ac VT 46 -3 -3 .0 00 AN ti [...] 1 42 PH CE AR TA MA NC CY NO PH #1 EN 56 9 5- 32 5 ME 59 01 03 21 6 00 WA Ac TH 74 -3 -0 .0 00 L- ti YL 60 1- 3- 00 07 MA ve VT 00 20 20 86 RT ED 10 17 17 52 NI 3 77 PH SO AR LO MA NE CY 4 #1 MG 56 9 DO SE PK AM 00 01 03 20 10 00 WA Ac OX 78 -3 -0 .0 00 L- ti -C 11 1- 3- 00 07 MA ve LA 85 20 20 86 RT V 22 17 17 52 87 0 78 PH 5- AR 12 MA 5 CY MG #1 TA 56 BL 9 ET FA 68 01 02 30 30 00 [...] 0 30 30 TO 61 HI Ac VT 59 -2 -2 .0 LL 17 ME [...] PH TA AR BL MA ET CY VT 65 05 06 3 30 30 TO [...] CL IN IC PH AR MA CY VT 65 05 05 3 30 30 TO [...] Procedure DOS Code Location Performer Comment CULTURE 26713 LAB MAR LAB MAR BACTERIAL 7 LAUR[facility] LAURA [facility] [place] [address] LAB MAR LAB MAR TRIIODOTH 7 LAURA LAURA YRONINE [place] [place] [address] LAB MAR LAB MAR FREE 7 LAURA [place]UR[place] [address] LAB MAR LAB MAR THYROID 7 LAURA LAUR[facility] STIMULATI HOLDINGS HOLDINGS [place] III [address] [facility] NOE SURG 7 [place] PATHOLOGY GROSS&TIN ROSCOPIC EXAM RAD EXP G9500 KATINA VIVAS INDICES/E 7 XP TM & RADIOLOGY NUMB ASSOCIAT FLUORO IMAGES DOC CHOLANGIO 58752 KATINA VIVAS GRAPHY&/P 7 ANCREATOG RADIOLOGY GRADY ASSOCIAT NTRAOP RS&I ANES 25311 [facility] INTRAPERI 7 LTH TONEAL ANESTHESI UPPER A PSC ABDOMEN W/LAPS NOS LAPS SURG 07337 INNA LIMWOMI 7 W GENERAL W GENERAL CHOLECYST SURGERY SURGERY ECTOMY W/CHOLANG IOGRAPHY INJECTION J2805 INNA LIMWVIE 7 W W [facility] 5 MEDICAL MEDICAL MICROGRAM S TECHNETIU A9537 INNA KEITH M TC-99M 7 W W [facility] N DX UP MEDICAL MEDICAL TO 15 MCI HEPATOBIL 46926 [facility] SYST 7 IMAG INC RADIOLOGY GB ASSOCIAT W/PHARMA INTERVENJ US BREAST 33834 [facility] REAL 7 EIDER TIME RADIOLOGY WITH ASSOCIAT IMAGE LIMITED COMPUTER- 31819 [facility] A[facility] 6 DETECTION RADIOLOGY RADIOLOGY ASSOCIAT ASSOCIAT SCREENING MAMMOGRAP HY SCREENING G0202 [facility] 6 MAMMOGRAP RADIOLOGY HY BRAYDON [place] [address] [facility] ABDOMINAL 6 FAMILY REAL HEALTH TIME CTR W/IMAGE LIMITED GENERAL 64968 LAB MAR LAB MAR HEALTH 6 LAURA [place] [address] LAB MAR LAB MAR TRIIODOTH 6 LAURA LAURA YRONINE [place] [place] [address] LAB MAR LAB MAR FREE 6 ALURA LAURA [place] [address] [facility] OLGUIN TROPONIN 6 MEM HOS[facility] QUANTITAT INC INC SAMIR BLOOD 41051 [facility] OLGUIN COUNT 6 [facility] COMPLETE INC INC AUTO&AUTO DIFRNTL WBC COMPREHEN 34232 [facility] SIVE 6 [facility] METABOLIC INC INC PANEL ECG 94313 [facility] OLIVAREZ JR ROUTINE 6 [facility] W/LEAST P 12 LDS I&R ONLY URNLS DIP 45240 [facility] OLGUIN 6 [facility] STICK/TAB INC INC [place] [address] [facility] OLGUIN LIPASE 6 [facility] INC INC ECG 21794 [facility] OLGUIN ROUTINE 6 [facility] ECG INC INC W/LEAST 12 LDS TRCG ONLY W/O I&R URNLS DIP 10074 [facility] 1 PRIMARY PAT STICK/TAB CARE LET RGNT CENTER AUTO W/O MICROSCOP Y [place] MISSED 36419 DANDRE BEDOYA 1 ELKE QUEVEDO FIRST TRIMESTER SURGICAL URNLS DIP 75044 [facility] DUNN GWE 1 PRIMARY STICK/TAB CARE LET RGNT CENTER AUTO W/O MICROSCOP Y COLLECTIO 13017 [facility] DUNN GWE N VENOUS 1 PRIMARY BLOOD CARE VENIPUNCT CENTER URE BLOOD 23954 [facility] TYPING 1 W W SEROLOGIC REGIONAL REGIONAL ABO MEDICAL MEDICAL COLLECTIO 16128 [facility] N VENOUS 1 W W BLOOD [facility] URE BLOOD 90637 [facility] TYPING 1 W W SEROLOGIC REGIONAL REGIONAL RH (D) MEDICAL MEDICAL GONADOTRO 76200 [facility] PIN 1 W [facility] MEDICAL QUANTITAT SAMIR URNLS DIP 16827 [facility] 1 W W STICK/TAB REGIONAL [facility] MEDICAL MEDICAL REAGENT AUTO MICROSCOP Y COLLECTIO 98357 [facility] DUNN GWE N VENOUS 1 PRIMARY BLOOD CARE VENIPUNCT CENTER URE URNLS DIP 82296 [facility] DUNN GWE 1 PRIMARY STICK/TAB CARE LET RGNT CENTER AUTO W/O MICROSCOP Y URNLS DIP 03671 [facility] DUNN GWE 1 PRIMARY STICK/TAB CARE LET RGNT CENTER AUTO W/O MICROSCOP Y COLLECTIO 58982 [facility] DUNN GWE N VENOUS 1 PRIMARY BLOOD [place] [address] [facility] OLIVAREZ CO LEAD 1 [facility] 05033 [facility] DUNN GWE 1 PRIMARY TEST CARE VISUAL CENTER COLOR CMPRSN METHS COLLECTIO 16699 [facility] DUNN GWE N VENOUS 1 PRIMARY BLOOD CARE VENIPUNCT CENTER URE URNLS DIP 05-24-201 05632 [facility] DUNN GWE 1 PRIMARY STICK/TAB CARE LET RGNT CENTER AUTO W/O MICROSCOP Y COLLECTIO 56032 [facility] TOLBERT, N VENOUS 9 PRIMARY SRIDHAR BLOOD CARE VENIPUNCT CENTERINC URE URINE 59483 [facility] KULKARNIETT, 9 PRIMARY SRIDHAR TEST CARE VISUAL CENTERINC COLOR CMPRSN METHS BLOOD 10107 [facility] TYPING 9 W W SEROLOGIC [facility] RH (D) MEDICAL MEDICAL CENTER CENTER URINE 11911 [facility] 9 W W TEST [facility] VISUAL MEDICAL MEDICAL COLOR CENTER CENTER CMPRSN METHS THERAPEUT 93270 [facility] IC 9 W W PROPHYLAC [facility] TIC/DX MEDICAL MEDICAL INJECTION CENTER CENTER SUBQ/IM URNLS DIP 40878 [facility] 9 W W STICK/TAB [facility] LET MEDICAL MEDICAL REAGENT CENTER CENTER AUTO MICROSCOP Y COLLECTIO 49357 [facility] N VENOUS 9 W W BLOOD [facility] VENIPUNCT MEDICAL MEDICAL URE CENTER CENTER BLOOD 53691 [facility] COUNT 9 W W COMPLETE [facility] AUTO&AUTO MEDICAL MEDICAL DIFRNTL CENTER CENTER WBC BLOOD 55845 [facility] TYPING 9 W W SEROLOGIC [facility] ABO [facility] [place] [place] [address] [facility] TIRADO DUNN, THYROID 9 PRIMARY JAEL STIMULATI CARE NG CENTERINC HORMONE TSH URNLS DIP 77001 [facility] TIRADO DUNN, 9 PRIMARY JAEL STICK/TAB CARE LET RGNT CENTERINC AUTO W/O MICROSCOP Y URINE 49857 [facility] DUNN, 9 PRIMARY JAEL TEST CARE VISUAL CENTERINC COLOR CMPRSN METHS URINE 52621 [facility] 9 W W TEST [facility] VISUAL MEDICAL MEDICAL COLOR CENTER CENTER CMPRSN METHS CUL BACT 97186 [facility] XCPT 9 W W URINE [facility] BLOOD/STO MEDICAL MEDICAL OL CENTER CENTER AEROBIC ISOL SMR PRIM 79523 [facility] SRC WET 9 W W [facility] NFCT AGT MEDICAL MEDICAL CENTER CENTER URNLS DIP 82284 ANNDOWOMI [facility] 9 W W STICK/TAB [facility] LET MEDICAL MEDICAL REAGENT CENTER CENTER AUTO MICROSCOP Y CHLAMYDIA 67331 [facility] 9 W W TRACHOMAT [facility] IS MEDICAL MEDICAL CENTER CENTER GONADOTRO 71517 RAPHAELWOMI LIMWOMI PIN 9 W W CHORIONIC [facility] MEDICAL MEDICAL QUANTITAT CENTER CENTER SAMIR BLOOD 81329 ANNDOWOMI [facility] COUNT 9 W W COMPLETE [facility] AUTO&AUTO MEDICAL MEDICAL DIFRNTL CENTER CENTER WBC SMR PRIM 69761 ANNDOWOMI [facility] SRC 9 W W GRAM/GIEM [facility] SA STAIN MEDICAL MEDICAL BCT CENTER CENTER FUNGI/WALTER L COLLECTIO 77448 RAPHAELWOMI LIMWVIE N VENOUS 9 W W BLOOD [facility] VENIPUNCT MEDICAL MEDICAL URE CENTER CENTER Encounters Encounter Start End Date Code Location Performer Type Date OFFICE 33775 [facility] G[facility] OUTPATIEN 7 7 FAMILY T VISIT HEALTH 25 CTR MINUTES OFFICE 41062 [facility] CARME[facility] OUTPATIEN 7 7 FAMILY T VISIT HEALTH 15 CTR MINUTES OFFICE 76482 INNA BRADYFRANCK OUTPATIEN 7 7 W GENERAL T NEW 45 SURGERY MINUTES OFFICE 10813 [facility] OUTPATIEN 7 7 FAMILY T VISIT HEALTH 15 CTR MINUTES [facility] 42360 [facility] CARMELLA OUTPATIEN 6 6 FAMILY T VISIT HEALTH 15 CTR MINUTES EMERGENCY 85260 [facility] DEPT 6 6 PHYSICIAN VISIT S, PLLC HIGH SEVERITY& THREAT [facility] SHARIF - 6 6 [facility] OUTPATIEN INC T OFFICE 01496 [facility] OUTPATIEN 1 1 PRIMARY PAT T VISIT CARE 15 CENTER MINUTES OFFICE 69135 [facility] DUNN GWE OUTPATIEN 1 1 PRIMARY T VISIT CARE 15 CENTER MINUTES EMERGENCY 56098 [facility] 1 1 W [facility] T VISIT MEDICAL HIGH/URGE NT SEVERITY [facility]OSPITAL [facility] - 1 1 W OUTPATIEN REGIONAL T MEDICAL OFFICE 25453 [facility] KANU BORIS OUTPATIEN 1 1 PRIMARY T VISIT CARE 15 CENTER MINUTES OFFICE 33018 [facility] DUNN GWE OUTPATIEN 1 1 PRIMARY T VISIT CARE 15 CENTER MINUTES OFFICE 33886 [facility] DUNN GWE OUTPATIEN 1 1 PRIMARY T VISIT CARE 25 CENTER MINUTES OFFICE 30200 [facility] OUTPATIEN 1 1 HEALTH HEALTH T NEW 20 [facility] MINUTES T T OFFICE 31067 [facility] DUNN GWE OUTPATIEN 1 1 PRIMARY T VISIT CARE 15 CENTER MINUTES OFFICE 91703 [facility] TOLBERT, OUTPATIEN 9 9 PRIMARY SRIDHAR T VISIT CARE 25 CENTERINC MINUTES EMERGENCY 26038 [facility] 9 9 W [facility] T VISIT MEDICAL HIGH/URGE CENTER NT SEVERITY HOSPITAL [facility] - 9 9 W OUTPATIEN REGIONAL T MEDICAL CENTER OFFICE 15801 [facility] DUNN, OUTPATIEN 9 9 PRIMARY JAEL T VISIT CARE 15 CENTERINC MINUTES HOSPITAL [facility] - 9 9 W OUTPATIEN REGIONAL T MEDICAL CENTER EMERGENCY 73986 [facility] 9 9 W [facility] T VISIT MEDICAL MODERATE CENTER SEVERITY
--- OUTSIDE RECORDS SUMMARY | 2017-04-25 16:18 | External Medical Summary Rpt ---
Author Author , LORENZO Organization LORENZO Address Unknown Phone [email or web address] Care Team Providers Care Gaming Manager Name Role Phone [employer] [place] [employer], Unavailable [...] HOLDINGS, LAB MAR [facility] Unavailable Unavailable [facility], [facility] Unavailable Unavailable DEPARTMENT, [facility] Unavailable Unavailable [facility]MENT, [facility] Unavailable C[facility], [facility] Unavailable Unavailable [facility] Unavailable Unavailable ASSOCI, [facility] Unavailable Unavailable SURGERY, [facility] Unavailable Unavailable MEDICAL, [facility] Unavailable Unavailable MEDICAL CENTER, [facility] Unavailable Unavailable MEDICAL, [facility], Unavailable Unavailable PLL, [facility] ELKE SAE, ELKE Unavailable Unavailable SAE TOLBERT, SRIDHAR, Unavailable Unavailable TOLBERT, SRIDHAR [facility], Unavailable Unavailable [facility] RENUSCH, RENUSCH Unavailable Unavailable SPADY, SPADY Unavailable Unavailable [facility] Unavailable Unavailable PHARMACY, [facility] # Unavailable Unavailable [id number], [facility] # [id number] DUNN GWE, DUNN GWE Unavailable Unavailable DUNN, JAEL, DUNN, Unavailable Unavailable JAEL Purpose Continuity of Care Document - 11-16-2008 through 2016 Problems Code Diagnosis DOS Provider Status [id number] OTHER 02-11-2017 [facility] MUSCLE FAMILY SPASM [...] CHOLECYSTIT GENERAL IS SURGERY K828 OTHER 11-04-2016 [facility] SPECIFIED [facility]Y DISEASES OF ASSOCIAT GALLBLADDER E6601 MORBID 10-29-2016 [facility] SEVERE GENERAL OBESITY DUE SURGERY TO EXCESS CALORIES Z6841 BODY MASS 10-29-2016 [facility] INDEX BMI GENERAL 40.0-44.9 SURGERY ADULT J0190 ACUTE 10-15-2016 [facility] SINUSITIS FAMILY UNSPECIFIED HEALTH CTR R1011 RIGHT UPPER 10-03-2016 [facility] PAIN MEDICAL R110 NAUSEA 10-03-2016 [facility] ASS[facility]AT R140 ABDOMINAL 10-03-2016 [facility] DISTENSION RADIOLOGY GASEOUS ASSOCIAT N63 UNSPECIFIED 09-17-2016 [facility] LUMP IN [facility] BREAST MEDICAL Z1231 ENCOUNTER 09-05-2016 [facility] SCREENING [facility] NEOPLASM BREAST K30 FUNCTIONAL 08-24-2016 [facility], [facility] R1013 EPIGASTRIC 08-24-2016 [facility] PAIN [facility], [facility] 5990 URINARY 03-23-2011 [facility] TRACT [facility] SITE NOT SPECIFIED 05435 UNSPEC 03-08-2011 DANDRE BEDOYA MD AB WITHOUT MENTION COMP 24589 THREATENED 03-06-2011 [facility] , PRIMARY ANTEPARTUM CARE CENTER V221 SUPERVISION 03-06-2011 [facility] OF OTHER PRIMARY NORMAL CARE CENTER 7881 DYSURIA 03-05-2011 [facility] 460 ACUTE 03-04-2011 [facility] NASOPHARYNG PRIMARY ITIS CARE CENTER 2449 UNSPECIFIED 02-19-2011 [facility] HYPOTHYROID CARE CENTER ISM 80747 OBES COMP 02-19-2011 [facility] PG PRIMARY /THE CARE CENTER PP ANTEPARTUM COND/COMP 78544 PREVIOUS 02-19-2011 [facility] TIRADO C-SECT PRIMARY DELIVERY [...] [facility] MENSTRUATIO PRIMARY N CARE CENTERINC 41325 ESOPHAGEAL 11-28-2008 [facility] 632 MISSED 11-28-2008 [facility] 11477 UNSPECIFIED 11-16-2008 [facility] ABNORMALITY MEDICAL OF LABOR CENTER ANTEPARTUM 7245 UNSPECIFIED 11-16-2008 [facility] Medications Na ND Rx Da Fi Fi Am Da Di Ph RX Ph St me C No te ll ll ou ys ag ar # ys at rm s nt no ma ic us Or Da si cy ia de te s n re d LI 00 06 07 30 00 [place] Ac OT 57 -2 -2 .0 00 L- ti HY 40 0- 1- 00 07 MA ve RO 22 20 20 89 RT NI 00 17 17 05 NE 1 11 PH AR SO MA D CY 5 MC #1 G 56 TA 9 B PA 68 06 07 30 00 [place] Ac NT 64 -2 -2 .0 00 L- ti OP 50 0- 1- 00 07 MA ve RA 49 20 20 89 RT ZO 25 17 17 05 LE 4 12 PH AR SO MA D CY DR #1 40 56 9 MG TA B LE 00 06 07 30 30 00 [place] Ac VO 78 -2 -2 .0 00 L- ti TH 15 0- 1- 00 07 MA ve YR 18 20 20 89 RT OX 79 17 17 04 IN 2 98 PH E AR 15 MA 0 CY MC G #1 TA 56 BL 9 ET ES 54 06 07 30 30 00 [place] Ac CI 45 -2 -2 .0 00 L- ti TA 80 0- 1- 00 07 MA ve LO 89 20 20 89 RT NM 21 17 17 04 AM 0 99 [...] 05 06 60 30 00 DE Ac NM 46 -3 -3 .0 00 AN ti [...] 60 1- 3- 00 07 MA ve NM 00 20 20 86 RT ED 10 [...] 0 30 30 TO 61 HI Ac NM 59 -2 -2 .0 LL 17 ME [...] PH TA AR BL MA ET CY NM 65 05 06 3 30 30 TO [...] CL IN IC PH AR MA CY NM 65 05 05 3 30 30 TO [...] Procedure DOS Code Location Performer Comment CULTURE 11056 LAB MAR LAB MAR BACTERIAL 7 LAURA LAURA HOLDINGS HOLDINGS [place] [address] LAB MAR LAB MAR TRIIODOTH 7 LAURA LAURA YRONINE [place] [address] LAB MAR LAB MAR FREE 7 LAURA LAUR[place] [address] LAB MAR LAB MAR THYROID 7 LAURA LAURA STIMULATI HOLDINGS HOLDINGS [place] L[place] [address] [facility] NOE SURG 7 [place] INC PATHOLOGY GROSS&TIN ROSCOPIC EXAM RAD EXP G9500 KATINA VIVAS INDICES/E 7 XP TM & RADIOLOGY NUMB ASSOCIAT FLUORO IMAGES DOC CHOLANGIO 28858 KATINA VIVAS GRAPHY&/P 7 ANCREATOG RADIOLOGY GRADY ASSOCIAT NTRAOP RS&I ANES 23505 [facility] INTRAPERI 7 LTH TONEAL ANESTHESI UPPER A PSC ABDOMEN W/LAPS NOS LAPS SURG 55103 INNA LIMWOMI 7 W GENERAL W GENERAL CHOLECYST SURGERY SURGERY ECTOMY W/CHOLANG IOGRAPHY INJECTION J2805 INNA LIMWVIE 7 W W [facility] 5 MEDICAL MEDICAL MICROGRAM S TECHNETIU A9537 INNA KEITH M TC-99M 7 W W [facility] N DX UP MEDICAL MEDICAL TO 15 MCI HEPATOBIL 72112 [facility] SYST 7 IMAG INC RADIOLOGY GB ASSOCIAT W/PHARMA INTERVENJ US BREAST 99448 [facility] REAL 7 EIDER TIME RADIOLOGY WITH ASSOCIAT IMAGE LIMITED COMPUTER- 02083 [facility] AIDED 6 DETECTION RADIOLOGY RADIOLOGY ASSOCIAT ASSOCIAT SCREENING MAMMOGRAP HY SCREENING G0202 [facility] VIVAS 6 MAMMOGRAP RADIOLOGY HY BRAYDON [place] [address] [facility] CARMELLA ABDOMINAL 6 FAMILY REAL HEALTH TIME CTR W/IMAGE LIMITED GENERAL 75896 LAB MAR LAB MAR HEALTH 6 LAURA [place] [address] LAB MAR LAB MAR TRIIODOTH 6 LAURA LAURA YRONINE [place] [place] [address] LAB MAR LAB MAR FREE 6 LAURA LAURA [place] [address] SHARIF OLGUIN TROPONIN 6 [facility] H[facility] QUANTITAT INC INC SAMIR BLOOD 48103 SHARIF OLGUIN COUNT 6 [facility] COMPLETE INC INC AUTO&AUTO DIFRNTL WBC COMPREHEN 50886 SHARIF OLGUIN SIVE 6 [facility] METABOLIC INC INC PANEL ECG 59180 SHARIF OLIVAREZ JR ROUTINE 6 [facility] W/LEAST P 12 LDS I&R ONLY URNLS DIP 20168 SHARIF OLGUIN 6 [facility] STICK/TAB INC INC [place] [address] SHARIF OLGUIN LIPASE 6 [facility] INC INC ECG 50280 SHARIF OLGUIN ROUTINE 6 [facility] ECG INC INC W/LEAST 12 LDS TRCG ONLY W/O I&R URNLS DIP 55728 [facility] 1 PRIMARY PAT STICK/TAB CARE LET RGNT CENTER AUTO W/O MICROSCOP Y [place] MISSED 02138 DANDRE BEDOYA 1 ELKE [place] FIRST TRIMESTER SURGICAL URNLS DIP 17839 [facility] DUNN GWE 1 PRIMARY STICK/TAB CARE LET RGNT CENTER AUTO W/O MICROSCOP Y COLLECTIO 89831 [facility] DUNN GWE N VENOUS 1 PRIMARY BLOOD CARE VENIPUNCT CENTER URE BLOOD 91787 [facility] TYPING 1 W W SEROLOGIC REGIONAL REGIONAL ABO MEDICAL MEDICAL COLLECTIO 63498 [facility] N VENOUS 1 W W BLOOD [facility] URE BLO[facility] 44238 [facility] TYPING 1 W W SEROLOGIC REGIONAL REGIONAL RH (D) MEDICAL MEDICAL GONADOTRO 65587 [facility] PIN 1 W W CHORIONIC [facility] MEDICAL QUANTITAT SAMIR URNLS DIP 09355 [facility] 1 W W STICK/TAB REGIONAL [facility] MEDICAL MEDICAL REAGENT AUTO MICROSCOP Y COLLECTIO 42839 [facility] DUNN GWE N VENOUS 1 PRIMARY BLOOD CARE VENIPUNCT CENTER URE URNLS DIP 73209 [facility] DUNN GWE 1 PRIMARY STICK/TAB CARE LET RGNT CENTER AUTO W/O MICROSCOP Y URNLS DIP 72134 [facility] DUNN GWE 1 PRIMARY STICK/TAB CARE LET RGNT CENTER AUTO W/O MICROSCOP Y COLLECTIO 31545 [facility] DUNN GWE N VENOUS 1 PRIMARY BLOOD [place] [address] [facility] OLIVAREZ CO LEAD 1 [facility] 14017 [facility] DUNN GWE 1 PRIMARY TEST CARE VISUAL CENTER COLOR CMPRSN METHS COLLECTIO 64228 [facility] DUNN GWE N VENOUS 1 PRIMARY BLOOD CARE VENIPUNCT CENTER URE URNLS DIP 05-24-201 26870 [facility] DUNN GWE 1 PRIMARY STICK/TAB CARE LET RGNT CENTER AUTO W/O MICROSCOP Y COLLECTIO 15014 [facility] TOLBERT, N VENOUS 9 PRIMARY SRIDHAR BLOOD CARE VENIPUNCT CENTERINC URE URINE 11390 [facility] KULKARNIETT, 9 PRIMARY SRIDHAR TEST CARE VISUAL CENTERINC COLOR CMPRSN METHS BLOOD 08904 [facility] TYPING 9 W W SEROLOGIC [facility] RH (D) MEDICAL MEDICAL CENTER CENTER URINE 52459 [facility] 9 W W TEST [facility] VISUAL MEDICAL MEDICAL COLOR CENTER CENTER CMPRSN METHS THERAPEUT 74092 [facility] IC 9 W W PROPHYLAC [facility] TIC/DX MEDICAL MEDICAL INJECTION CENTER CENTER SUBQ/IM URNLS DIP 93521 [facility] 9 W W STICK/TAB [facility] LET MEDICAL MEDICAL REAGENT CENTER CENTER AUTO MICROSCOP Y COLLECTIO 35510 [facility] N VENOUS 9 W W BLOOD [facility] VENIPUNCT MEDICAL MEDICAL URE CENTER CENTER BLOOD 04073 [facility] COUNT 9 W W COMPLETE [facility] AUTO&AUTO MEDICAL MEDICAL DIFRNTL CENTER CENTER WBC BLOOD 48003 [facility] TYPING 9 W W SEROLOGIC [facility] ABO [facility] [place] [address] [facility] TIRADO DUNN, THYROID 9 PRIMARY JAEL STIMULATI CARE NG CENTERINC HORMONE TSH URNLS DIP 55010 [facility] TIRADO DUNN, 9 PRIMARY JAEL STICK/TAB CARE LET RGNT CENTERINC AUTO W/O MICROSCOP Y URINE 52776 [facility] DUNN, 9 PRIMARY JAEL TEST CARE VISUAL CENTERINC COLOR CMPRSN METHS URINE 91588 [facility] 9 W W TEST [facility] VISUAL MEDICAL MEDICAL COLOR CENTER CENTER CMPRSN METHS CUL BACT 79301 [facility] XCPT 9 W W URINE [facility] BLOOD/STO MEDICAL MEDICAL OL CENTER CENTER AEROBIC ISOL SMR PRIM 34253 [facility] SRC WET 9 W W [facility] NFCT AGT MEDICAL MEDICAL CENTER CENTER URNLS DIP 29480 ANNDOWOMI [facility] 9 W W STICK/TAB [facility] LET MEDICAL MEDICAL REAGENT CENTER CENTER AUTO MICROSCOP Y CHLAMYDIA 48045 [facility] 9 W W TRACHOMAT [facility] IS MEDICAL MEDICAL CENTER CENTER GONADOTRO 30661 RAPHAELWOMI LIMWOMI PIN 9 W W CHORIONIC [facility] MEDICAL MEDICAL QUANTITAT CENTER CENTER SAMIR BLOOD 53798 ANNDOWMOI [facility] COUNT 9 W W COMPLETE [facility] AUTO&AUTO MEDICAL MEDICAL DIFRNTL CENTER CENTER WBC SMR PRIM 94877 ANNDOWOMI [facility] SRC 9 W W GRAM/GIEM [facility] SA STAIN MEDICAL MEDICAL BCT CENTER CENTER FUNGI/WALTER L COLLECTIO 86620 RAPHAELWOMI LIMWVIE N VENOUS 9 W W BLOOD [facility] VENIPUNCT MEDICAL MEDICAL URE CENTER CENTER Encounters Encounter Start End Date Code Location Performer Type Date OFFICE 45171 [facility] GORE OUTPATIEN 7 7 FAMILY T VISIT HEALTH 25 CTR MINUTES OFFICE 50330 [facility] CARMELLA OUTPATIEN 7 7 FAMILY T VISIT HEALTH 15 CTR MINUTES OFFICE 56239 INNA BRADYFRANCK OUTPATIEN 7 7 W GENERAL T NEW 45 SURGERY MINUTES OFFICE 66877 [facility] OUTPATIEN 7 7 FAMILY T VISIT HEALTH 15 CTR MINUTES [facility]OS[facility] 86707 [facility] CARMELLA OUTPATIEN 6 6 FAMILY T VISIT HEALTH 15 CTR MINUTES EMERGENCY 95101 [facility] DEPT 6 6 PHYSICIAN VISIT S, PLLC HIGH SEVERITY& THREAT [facility] SHARIF - 6 6 [facility] OUTPATIEN INC T OFFICE 58952 [facility] OUTPATIEN 1 1 PRIMARY PAT T VISIT CARE 15 CENTER MINUTES OFFICE 00872 [facility] DUNN GWE OUTPATIEN 1 1 PRIMARY T VISIT CARE 15 CENTER MINUTES EMERGENCY 50076 [facility] 1 1 W [facility] REGIONAL T VISIT MEDICAL HIGH/URGE NT SEVERITY HOSPITAL [facility] - 1 1 W OUTPATIEN REGIONAL T MEDICAL OFFICE 15586 [facility] KANU BORIS OUTPATIEN 1 1 PRIMARY T VISIT CARE 15 CENTER MINUTES OFFICE 32480 [facility] DUNN GWE OUTPATIEN 1 1 PRIMARY T VISIT CARE 15 CENTER MINUTES OFFICE 74944 [facility] DUNN GWE OUTPATIEN 1 1 PRIMARY T VISIT CARE 25 CENTER MINUTES OFFICE 14965 [facility] OUTPATIEN 1 1 HEALTH HEALTH T NEW 20 [facility] MINUTES T T OFFICE 68719 [facility] DUNN GWE OUTPATIEN 1 1 PRIMARY T VISIT CARE 15 CENTER MINUTES OFFICE 26406 [facility] TOLBERT, OUTPATIEN 9 9 PRIMARY SRIDHAR T VISIT CARE 25 CENTERINC MINUTES EMERGENCY 87873 [facility] 9 9 W [facility] REGIONAL T VISIT MEDICAL HIGH/URGE CENTER NT SEVERITY HOSPITAL [facility] - 9 9 W OUTPATIEN REGIONAL T MEDICAL CENTER OFFICE 24693 [facility] DUNN, OUTPATIEN 9 9 PRIMARY JAEL T VISIT CARE 15 CENTERINC MINUTES HOSPITAL [facility] - 9 9 W OUTPATIEN REGIONAL T MEDICAL CENTER EMERGENCY 94600 [facility] 9 9 W [facility] REGIONAL T VISIT MEDICAL MODERATE CENTER SEVERITY
--- OUTSIDE RECORDS SUMMARY | 2017-04-25 16:19 | External Medical Summary Rpt ---
Demographics Preferred Language Japanese Marital Status Unknown Adventist Affiliation Unknown Race Unknown Ethnic Group Unknown Author Author LORENZO Address Unknown Phone Immunization No patient found.
--- OUTSIDE RECORDS SUMMARY | 2017-04-25 16:19 | External Medical Summary Rpt ---
Demographics Preferred Language Pashto Marital Status Unknown Mandaen Affiliation Unknown Race Unknown Ethnic Group Unknown Author Author LORENZO Address Unknown Phone Immunization No patient found.
--- OUTSIDE RECORDS SUMMARY | 2017-04-25 16:19 | External Medical Summary Rpt ---
Author Author LORENZO Craven, LORENZO Craven Organization [employer] Address Unknown Phone Unavailable
[2017-04-25] MEDS ORDERED: NAPROXEN SODIU500 MG PO (16:37)
[2017-04-25] MEDS ORDERED: FLEXERIL10 MG PO (16:37)
--- NOTE | 2017-04-25 16:38 | Emergency Room Report ---
History of Present Illness Time Seen by 1612 Presenting Problem in Triage Pt arrived:Walked Presenting Problem:PT C/O TINGLING DOWN BOTH LEGS BUT ADVISES THE LEFT FEELS WORSE. 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 N Clinical Suspician of Infection? N Mental Status: 1 - Regular (Normal Baseline) Sepsis Risk:Low Sepsis Risk Have you (or family members/close friends) recently traveled outside the [place]? N If Yes, where/when: Have you had exposure to infectious disease within the past month? N TB? Other? Specify: Patient with chronic back pain, has had MRI in past showing spurs, reports standing on feet all day yesterday at work, and having back pain today. She has chronic hematuria and had her UA checked a few days ago at PCP office and was told she does not have a UTI. She has no fever, no unilateral flank pain, no vomiting, no abdominal pain. She c/o positional numbness down left leg but is ambulatory; no loss of bowel or bladder function. ALLERGIES Coded Allergies: No Known Allergies (04/25/17) Home Medications Active Scripts Famotidine (Pepcid) 40 MG PO DAILY #20 TAB Prov: 08/24/16 Reported Medications Levothyroxine Sod (Synthroid) 0.15 MG NG DAILY #30 History Medical History General CAD? No Angina: No HI: No Hypertension? No Hyperlipidemia? No CHF? No DVT? No PE? No COPD? No Asthma? No Anemia? No GERD? No Gastric ulcers? No GI Bleed? No Hernia? No Thyroid Problems? Yes Hypothyroidism? No CVA? No Seizures? No Diabetes? No Renal Insuffiency? No End Stage Renal Disease? No UTI? No Stones? No BPH? No GB Disease: No Nephritic Syndrome? No Asplenia? No Hepatitis? No Sickle Cell Disease? No Arthritis? No Migraines? No Cataracts? No Glaucoma? No MRSA? No HIV? No TB? No Anxiety? No Depression? No Cancer? No More? 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/A Social History Smoking Hx Smoker: Never Smoker Tobacco: No Alcohol Alcohol: No Review of Systems All Other Systems Reviewed and Negative Musculoskeletal see HPI Psychiatric/Neurological see HPI Physical Exam Vital Signs Vital Signs Date Time Temp Pulse Resp B/P Pulse O2 O2 Flow FiO2 Ox Delivery Rate 04/25 1553 98.4 75 16 146/80 98 General Appearance normal appearance, WD/WN, no apparent distress Eye Exam - bilateral eye normal exam, bilateral eye PERRL Neck normal inspection, non-tender, supple, full range of motion Respiratory Status Yes: trachea midline, chest symmetrical, non tender chest. No: respiratory distress, tender on palpation, use of accessory muscles, pain on inspiration, pain on expiration, productive cough, non productive cough. Lung Sounds bilateral: normal breath sounds, lungs clear. Cardiovascular normal exam, regular rate/rhythm, no peripheral edema, no gallop, no JVD, no murmur, no rub, normal peripheral pulses Gastrointestinal normal bowel sounds, normal exam, non tender, soft, no organomegaly, no pulsatile mass, no guarding, no rebound Back no CVA tenderness, no vertebral tenderness, bowel/bladder continent, strt leg raising(L)-NML, strt leg raising(R)-NML Extremities non-tender, normal range of motion, normal inspection, normal capillary refill, no pedal edema Strength 5 Upper Ext (L), 5 Upper Ext (R), 5 Lower Ext (L), 5 Lower Ext (R) Neurologic alert, normal exam, no motor/sensory deficits, oriented x 3 ( ambulatory on heels/toes) Glascow Coma Scale Glascow Coma Scale Response Value EYE response: 4 Spontaneously 4 MOTOR response: 6 OBEYS 6 VERBAL response: 5 Oriented & Converses 5 Total 15 Reflexes DTR 2+ ankle (R), 2+ ankle (L) Skin intact, normal color Medical Decision Making LABS/Meds/Orders Pt receiving controlled substance in ED? No Results/Orders Current Medication Orders Sig/Bakari Start time Last Medication Dose Route Stop Time Status Admin Ketorolac 60 MG ONCE ONE 04/25 163 DC Tromethamine IM 04/25 1631 Departure Departure Time of Disposition 1635 Disposition DC Home or Self Care(routine) Clinical Impression Primary Impression: Low back pain Qualifiers: Chronicity: unspecified Back pain laterality: unspecified Sciatica presence: with sciatica Sciatica laterality: sciatica of left side Qualified Code: M54.42 - Lumbago with sciatica, left side Condition STABLE Referrals CARL WEIR (Family) Patient Instructions DI for Low Back Pain Additional Instructions Naproxen, Flexeril, see your VISITOR INFORMATION ASSISTANT in one to three days for recheck Discharge Counseling Counseled pt/family regarding diagnosis, medications/RX, home care, follow up needs Prescriptions Current Visit Scripts NAPROXEN (NAPROXEN 500MG TAB) 500 MG PO BIDP PRN pain #20 TAB Cyclobenzaprine Hcl (Flexeril) 5 MG PO BID PRN back pain #6 TAB Ref 1 ED Critical Care Critical Care No
[2017-04-25 17:32] VITALS: BP 142/89
== END 2017-04-25 17:33 | disposition home or self-care (01) ==
LOC: ER 15:50
DX: M54.42 Lumbago with sciatica, left side (principal)

== ENCOUNTER 2017-05-28 21:15 | Emergency (ER) | payer MEDICAID ==
[~2017-05-28] VITALS: Ht 154.9 cm; Wt 90.7 kg
[~2017-05-28 21:15] MED LIST changes: +FLEXERIL10 MG PO; +NAPROXEN SODIU500 MG PO
[2017-05-28] MEDS ORDERED: LIOTHYRONINE SO5 MCG PO (21:35)
[2017-05-28 21:45] LABS: URINE BILIRUBIN - DIPSTICK NEGATIVE (NEG); URINE BLOOD 1+ (NEG)
[2017-05-28 21:54] LABS: HEMOGLOBIN 12.5 g/dL (12.2-16.2); LYMPH # 2.3 K/mm3 (0.7-4.5)
--- NOTE | 2017-05-28 22:05 | Emergency Room Report ---
History of Present Illness Time Seen by 2100 Presenting Problem in Triage Pt arrived:Walked Presenting Problem:NOTICED A PROTRUSION FROM VAGINA AT 1999. HAS BEEN TREATED FOR A YEAST INFECTION SECONDARY TO ITCHING AND FREQUENCY. Onset of symptoms date/time:05/28/17 or onset unknown for: Treatment Prior to Arrival: [employer] Provided by:PHYSICIAN Sepsis Risk Assessment: Temp: 98.0 B/P: MAP: Pulse: 71 Resp: 14 Recent fever? N Clinical Suspician of Infection? Y Mental Status: 1 - Regular (Normal Baseline) Sepsis Risk:Low Sepsis Risk Have you (or family members/close friends) recently traveled outside the [place]? N If Yes, where/when: Have you had exposure to infectious disease within the past month? N TB? Other? Specify: Source patient, RN notes reviewed, old records Exam Limitations no limitations Comment pt with freq and dysuria over the last few days and has no vag bleeding or d/c - saw pcp today with rx for yeast given - no fever or rash and no hematuria Cardiac Chest Pain Chest pain indicative of cardiac No Timing/Duration this evening Severity moderate ALLERGIES Coded Allergies: No Known Allergies (04/25/17) Home Medications Active Scripts Cyclobenzaprine Hcl (Flexeril) 5 MG PO BID PRN back pain #6 TAB Ref 1 Prov: 04/25/17 Famotidine (Pepcid) 40 MG PO DAILY #20 TAB Prov: 08/24/16 Discontinued Scripts NAPROXEN (NAPROXEN 500MG TAB) 500 MG PO BIDP PRN pain #20 TAB Prov: 04/25/17 DC: 05/24/17 0000 Reported Medications Levothyroxine Sod (Synthroid) 0.15 MG NG DAILY #30 Liothyronine Sodium 5 MCG PO DAILY #30 History Medical History General CAD? No Angina: No SD: No Hypertension? No Hyperlipidemia? No CHF? No DVT? No PE? No COPD? No Asthma? No Anemia? No GERD? No Gastric ulcers? No GI Bleed? No Hernia? No Thyroid Problems? Yes Hypothyroidism? No CVA? No Seizures? No Diabetes? No Renal Insuffiency? No End Stage Renal Disease? No UTI? No Stones? No BPH? No GB Disease: No Nephritic Syndrome? No Asplenia? No Hepatitis? No Sickle Cell Disease? No Arthritis? No Migraines? No Cataracts? No Glaucoma? No MRSA? No HIV? No TB? No Anxiety? No Depression? No Cancer? No More? 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 Respiratory denies cough, denies shortness of breath, denies wheezing Cardiovascular denies chest pain, denies syncope Gastrointestinal denies abdominal pain, denies diarrhea, denies vomiting Genitourinary see HPI. denies: discharge, abnormal vaginal bleeding, dysuria, frequency, hesitancy, hematuria. Musculoskeletal denies joint pain, denies joint swelling, denies neck pain Skin denies rash Psychiatric/Neurological denies headache, denies seizure Physical Exam Vital Signs Vital Signs Date Time Temp Pulse Resp B/P Pulse O2 O2 Flow FiO2 Ox Delivery Rate 05/287 98.0 71 14 100 - WBC >12,000 or <4,000 or 10% bands? 2 or more SIRS Criteria Met? B/P: MAP: Creatinine >2.0? UA output<0.5ml/kg/hr for 2 hrs? Platelet count >100,000? Lactate >2.0mmol/1? INR >1.2 or PTT > than 60 sec? Evidence of Organ Dysfunction? Provider documented clinical suspician of infection? Y Sepsis Criteria Count: 1 Sepsis Risk: Low Sepsis Risk General Appearance no apparent distress Eye Exam - bilateral eye PERRL, bilateral eye EOMI Ear, Nose, Throat normal ENT inspection Neck supple Respiratory Status No: respiratory distress. Cardiovascular regular rate/rhythm, systolic murmur Peripheral Pulses Pulses normal Yes Gastrointestinal soft, no organomegaly, no pulsatile mass, no guarding, no rebound Back no CVA tenderness Extremities normal inspection Strength 4 Upper Ext (L), 4 Upper Ext (R), 4 Lower Ext (L), 4 Lower Ext (R) Pelvic normal external exam Nurse present during exam? 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 No Results/Orders Laboratory Tests 09/13/17 2145: Sodium 140, Potassium 3.7, Chloride 106, Carbon Dioxide 28, BUN 10, Creatinine 0.8, Estimated Creat Clear 130, Estimated GFR (MDRD) 78, Glucose 91, Calcium 8.9 , Total Bilirubin 0.3, AST 13 L, ALT 32, Alkaline Phosphatase 108, Total Protein 7.3, Albumin 3.4, Globulin 3.9 H, Albumin/Globulin Ratio 0.9 L, WBC 6.3, RBC 4.45, Hgb 12.5, Hct 37.3, MCV 83.9, RDW 14.6, Plt Count 268, MPV 8.1, Gran % 53.1, Gran # 3.3, Lymphocytes % 37.0, Monocytes % 6.0, Eosinophils % 3.0, Basophils % 1.0, Lymphocytes # 2.3, Monocytes # 0.4, Eosinophils # 0.2, Basophils # 0.1, PUBS MCHC 33.5, MCH 28.1 05/28/172129: Urine Color YELLOW, Urine Appearance CLEAR, Urine pH 6.5, Ur Specific [place] 1.010, Urine Protein NEGATIVE, Urine Ketones NEGATIVE, Urine Blood 1+ H, Urine Nitrate NEGATIVE, Urine Bilirubin NEGATIVE, Urine Urobilinogen 0.2, Ur Leukocyte Esterase TRACE H, Urine RBC 3-5, Urine WBC 3-5, Ur Squamous Epith Cells 3-5, Urine Bacteria 1+, Urine Glucose NEGATIVE Orders Procedure Date/time Status CULTURE, URINE 05/28 2220 Active URINALYSIS/COMPLETE 05/28 2130 Complete COMPLETE METABOLIC PANEL 05/28 2130 Complete CBC WITH AUTO DIFF 05/28 2130 Complete Departure Departure Time of Disposition 2216 Disposition DC Home or Self Care(routine) Clinical Impression Primary Impression: Cystitis Condition STABLE Referrals Judy NUGENT,Dat Irvin MD,Slim Patient Instructions DI for Acute Cystitis Additional Instructions use meds and see urology for follow up Discharge Counseling Counseled pt/family regarding diagnosis, test results, medications/RX, follow up needs Prescriptions Current Visit Scripts Ciprofloxacin HCl (Cipro 500MG TAB) 500 MG PO BID #14 TAB Phenazopyridine HCl (Pyridium) 200 MG PO TID #15 TAB ED Critical Care Critical Care No at 2236
[2017-05-28] MEDS ORDERED: CIPRO 500MG TA500 MG PO (22:33)
[2017-05-28] MEDS ORDERED: PYRIDIUM200 M2 PO (22:33)
[2017-05-28 22:52] VITALS: BP 150/99
== END 2017-05-28 22:52 | disposition home or self-care (01) ==
LOC: ER 21:15
PROVIDERS: Emergency Medicine
DX: N30.90 Cystitis, unspecified without hematuria (principal); E89.0 Postprocedural hypothyroidism; Z79.899 Other long term (current) drug therapy

== ENCOUNTER 2017-05-30 11:21 | Emergency (ER) | payer MEDICAID ==
[~2017-05-30] VITALS: Ht 154.9 cm; Wt 95.3 kg
[~2017-05-30 11:21] MED LIST changes: +CIPRO 500MG TA500 MG PO; +LIOTHYRONINE SO5 MCG PO; +PYRIDIUM200 M2 PO
[2017-05-30 11:36] LABS: URINE BILIRUBIN - DIPSTICK NEGATIVE (NEG); URINE BLOOD 2+ (NEG)
--- NOTE | 2017-05-30 11:40 | Emergency Room Report ---
History of Present Illness Time Seen by MD Beasley Presenting Problem in Triage Pt arrived:Walked Presenting Problem:PT C/O VAGINAL ITCHING, URGENCY WITH URINATION AND MILD LOWER BACK PAIN. 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 N Clinical Suspician of Infection? N Mental Status: 1 - Regular (Normal Baseline) Sepsis Risk:Low Sepsis Risk Have you (or family members/close friends) recently traveled outside the [place]? N If Yes, where/when: Have you had exposure to infectious disease within the past month? N TB? Other? Specify: Patient reports dysuria, frequency, and urgency for the past week, as well as hematuria. Newly on Cipro for cystitis, and was seen in the ED for evaluation two days ago. The vaginal itching is improved, and she is taking Pyridium for the dysuria. However, she now has intermittent right flank pain, reports a history of renal calculi requiring stennting by Dr. Goff in the past. She is now a patient of Dr. Funk, urologist in [place], and has contacted his office regarding her acute right flank pain today and was told to go to the ER as has such an extensive history of calculi. ALLERGIES Coded Allergies: No Known Allergies (04/25/17) Home Medications Active Scripts Ciprofloxacin HCl (Cipro 500MG TAB) 500 MG PO BID #14 TAB Prov: 05/28/17 Phenazopyridine HCl (Pyridium) 200 MG PO TID #15 TAB Prov: 05/28/17 Cyclobenzaprine Hcl (Flexeril) 5 MG PO BID PRN back pain #6 TAB Ref 1 Prov: 04/25/17 Famotidine (Pepcid) 40 MG PO DAILY #20 TAB Prov: 08/24/16 Discontinued Scripts NAPROXEN (NAPROXEN 500MG TAB) 500 MG PO BIDP PRN pain #20 TAB Prov: 04/25/17 DC: 05/24/17 0000 Reported Medications Levothyroxine Sod (Synthroid) 0.15 MG NG DAILY #30 Liothyronine Sodium 5 MCG PO DAILY #30 History Medical History General CAD? No Angina: No [place]: No Hypertension? No Hyperlipidemia? No CHF? No DVT? No PE? No COPD? No Asthma? No Anemia? No GERD? No Gastric ulcers? No GI Bleed? No Hernia? No Thyroid Problems? Yes Hypothyroidism? No CVA? No Seizures? No Diabetes? No Renal Insuffiency? No End Stage Renal Disease? No UTI? No Stones? No BPH? No GB Disease: No Nephritic Syndrome? No Asplenia? No Hepatitis? No Sickle Cell Disease? No Arthritis? No Migraines? No Cataracts? No Glaucoma? No MRSA? No HIV? No TB? No Anxiety? No Depression? No Cancer? No More? 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 Psychiatric/Neurological denies see HPI Physical Exam Vital Signs Vital Signs Date Time Temp Pulse Resp B/P Pulse O2 O2 Flow FiO2 Ox Delivery Rate 05/30 1202 62 18 127/83 99 05/30 1139 18 05/30 1128 98.4 62 18 132/98 99 General Appearance normal appearance, WD/WN, no apparent distress Eye Exam - bilateral eye normal exam, bilateral eye PERRL, bilateral eye EOMI Neck normal inspection, non-tender, supple, full range of motion Respiratory Status Yes: trachea midline, chest symmetrical, non tender chest. No: respiratory distress, tender on palpation, use of accessory muscles, pain on inspiration, pain on expiration, productive cough, non productive cough. Lung Sounds bilateral: normal breath sounds, lungs clear. Cardiovascular normal exam, regular rate/rhythm, no peripheral edema, no gallop, no JVD, no murmur, no rub Gastrointestinal normal bowel sounds, normal exam, non tender, soft, no organomegaly, no pulsatile mass, no guarding, no rebound Back bowel/bladder continent, CVA tenderness (R), strt leg raising(L)-NML, strt leg raising(R)-NML Extremities non-tender, normal range of motion, normal inspection, normal capillary refill, no calf tenderness, no pedal edema Strength 5 Upper Ext (L), 5 Upper Ext (R), 5 Lower Ext (L), 5 Lower Ext (R) Neurologic alert, normal exam, no motor/sensory deficits, oriented x 3 Glascow Coma Scale Glascow Coma Scale Response Value EYE response: 4 Spontaneously 4 MOTOR response: 6 OBEYS 6 VERBAL response: 5 Oriented & Converses 5 Total 15 Skin intact, normal color Medical Decision Making LABS/Meds/Orders Pt receiving controlled substance in ED? No Results/Orders Laboratory Tests 05/30/17 1130: Sodium 142, Potassium 3.6, Chloride 107, Carbon Dioxide 30, BUN 11, Creatinine 0.8, Estimated Creat Clear 136, Estimated GFR (MDRD) 78, Glucose 82, Calcium 9.1 , Total Bilirubin 0.3, AST 14 L, ALT 29, Alkaline Phosphatase 110, Total Protein 7.6, Albumin 3.5, Globulin 4.1 H, Albumin/Globulin Ratio 0.9 L, Amylase 49, Lipase 114, WBC 5.0, RBC 4.60, Hgb 12.8, Hct 39.3, MCV 85.4, RDW 14.6, Plt Count 260, MPV 8.4, Gran % 55.5, Gran # 2.8, Lymphocytes % 34.4, Monocytes % 5.3, Eosinophils % 3.8, Basophils % 1.0, Lymphocytes # 1.7, Monocytes # 0.3, Eosinophils # 0.2, Basophils # 0.1, PUBS MCHC 32.5, MCH 27.8 05/30/17 1123: Urine Color ORANGE, Urine Appearance CLEAR, Urine pH 6.0, Ur Specific [place] 1.020, Urine Protein NEGATIVE, Urine Ketones NEGATIVE, Urine Blood 2+ H, Urine Nitrate POSITIVE H, Urine Bilirubin NEGATIVE, Urine Urobilinogen 1.0, Ur Leukocyte Esterase NEGATIVE, Urine RBC OCC, Urine WBC OCC, Ur Squamous Epith Cells OCC, Urine Bacteria TRACE, Urine Glucose NEGATIVE Current Medication Orders Sig/Bakari Start time Last Medication Dose Route Stop Time Status Admin Ketorolac 30 MG ONCE ONE 05/30 1145 DC 05/30 Tromethamine IV 05/30 1146 1139 Ondansetron HCl 4 MG ONCE ONE 05/30 1145 DC 05/30 IV 05/30 1146 1138 Sodium Chloride 10 ML PRN PRN 05/30 1145 AC IV 05/31 1135 Sodium Chloride 1,000 ML .Q1H1M 05/30 1145 AC 05/30 IV 05/30 1245 1138 Sodium Chloride 10 ML PRN PRN 05/30 1145 AC IV 05/31 1135 Ketorolac 0 .STK-MED ONE 05/30 1136 DC Tromethamine .ROUTE Ondansetron HCl 0 .STK-MED ONE 05/30 1136 DC .ROUTE Sodium Chloride 1,000 ML .STK-MED ONE 05/30 1136 DC IV Orders Procedure Date/time Status DIET-NOTHING BY MOUTH 05/[address] ABD & PELVIS W/O CONTRAST 05/[address] ABD/PELVIS REQ 05/30 1136 Active IV SALINE LOCK 05/30 1136 Active LIPASE 05/30 1136 Complete CBC WITH AUTO DIFF 05/30 1136 Complete CHEM 12 PROFILE 05/30 1136 Complete AMYLASE 05/30 1136 Complete URINALYSIS/COMPLETE 05/30 1124 Complete XRAY/CT/US XRAY/CT/US CT abdomen, pelvis CT interpretation by reviewed by me, discussed w/radiologist Time results known: 1216 CT Results normal/NAD, stool R colon, neg dilatation or over calculi on right , very punctate on left. Progress ED Progress Notes Date 05/30/17 Time 1216 Comment UA reflects her being on Pyridium. Departure Departure Disposition DC Home or Self Care(routine) Clinical Impression Primary Impression: Renal colic on right side Condition STABLE Referrals CARL WEIR (Family) Patient Instructions DI for Flank Pain Additional Instructions Clear liquids overnight, keep your appointment with your urologist in [facility] over the counter as needed. See your family doctor in two to three days; take one bottle of magnesium citrate over the counter to get stool moving. ED Critical Care Critical Care No at 1221
[2017-05-30 11:49] LABS: HEMOGLOBIN 12.8 g/dL (12.2-16.2); LYMPH # 1.7 K/mm3 (0.7-4.5); LYMPH % 34.4 % (10-50.0)
[2017-05-30 11:50] LABS: URINE SQUAMOUS CELLS OCC #/hpf (0-5)
--- NOTE | 2017-05-30 12:21 | RADIOLOGY REPORT PS360 ---
CT ABD PELVIS W/O CONTRAST COMPARISON: None HISTORY: Right lower quadrant pain with some diarrhea TECHNIQUE: Multiaxial scans obtained from the hemidiaphragms the pelvic floor and were performed without IV or oral contrast. Sagittal coronal reformats were evaluated as well. FINDINGS: The lower lung alvarado are clear. There is a small hepatic cyst right lobe of liver measuring 1.4 cm. The stomach is distended with ingested food particles but otherwise appears normal. The spleen and pancreas are normal, there has been a previous cholecystectomy. The adrenal glands are normal. The kidneys are normal in size and is a tiny 1 to 2 mm nonobstructing calculus lower pole left kidney, there is no right renal calculi and there is no obstructive uropathy of either kidney. Small bowel appears normal. There is a tiny umbilical hernia containing fat only. I do not definitely identify the appendix but there are no pericecal inflammatory changes. There is large amount stool in the cecum and ascending colon. There has been a previous hysterectomy, the urinary bladder is partially decompressed. There is no free fluid in the pelvis. IMPRESSION: 1. Large amount of right-sided stool. 2. Tiny umbilical hernia containing fat only.
[2017-05-30 13:01] VITALS: BP 131/80
== END 2017-05-30 13:02 | disposition home or self-care (01) ==
LOC: ER 11:21
PROVIDERS: Emergency Medicine
DX: N23 Unspecified renal colic (principal); E89.0 Postprocedural hypothyroidism; Z79.899 Other long term (current) drug therapy
CPT/HCPCS: J2405